=== PATIENT | female | born 1995 | race African-American/Black ===

== ENCOUNTER 2018-02-15 15:20 | Inpatient (IN) | payer BC ==
[2018-02-15] MEDS ORDERED: NS 0.9% 1000 ML* 2,000 ML IV ONE (15:36)
[2018-02-15] MEDS ORDERED: Morphine INJ* 10 MG/ML 1 ML CARPUJECT IV ONE (16:15)
[2018-02-15] MEDS ORDERED: Ondansetron INJ* 2 MG/ML VIAL IV ONE ×2 (16:15→19:55)
[2018-02-15 16:16] LABS: ABS Basophils 0 10^3/ul (0-0.2); ABS Eosinophils 0 10^3/ul (0-0.6); ABS Lymphocytes 1.8 10^3/ul (1.0-4.8); ABS Monocytes 0.4 10^3/ul (0-0.8); ABS Nucleated RBC 0 10^3/ul; Eosinophil % 0.3 % (0-6); Hematocrit 36 % (35-47); Hemoglobin 12.2 g/dl (12.0-16.0); Lymphocyte % 28.1 % (25-47); Mean Corpuscular HGB Conc 34 g/dl (31-36); Mean Corpuscular Hemoglobin 28 pg (27-31); Mean Corpuscular Volume 82 fL (80-97); Mean Platelet Volume 8.6 um3 (7.4-10.4); Nucleated Red Blood Cells % 0.1; Platelet Count 241 10^3/ul (150-450); Red Blood Count 4.37 10^6/ul (4.0-5.4); Red Cell Distribution Width 13 % (10.5-15); White Blood Count 6.2 10^3/ul (3.5-10.8)
[2018-02-15 16:23] LABS: INR 1.08 (0.77-1.02)
[2018-02-15 16:36] LABS: EGFR Non-African American 68.3 (>60)
[2018-02-15] MEDS ORDERED: Morphine VIAL* 4 MG/ML VIAL (1 ml vial) IV ONE (16:39)
[2018-02-15] MEDS ORDERED: Iohexol 300* (CONTRAST) 10 ML SDV IV ONE (16:53)
[2018-02-15 16:55] LABS: Urine Appearance Clear; Urine Blood Negative (Negative); Urine Color Yellow; Urine Ketones 1+ (Negative); Urine Protein Negative (Negative); Urine Specific Gravity 1.015 (1.010-1.030); Urine Urobilinogen Negative (Negative)
[2018-02-15] MEDS ORDERED: LORazepam INJ* 2 MG/ML 1 ML VIAL IV ONE (19:55)
--- NOTE | 2018-02-15 20:08 | RAD ---
CLINICAL HISTORY: Abdominal pain COMPARISON: None TECHNIQUE: Multiple contiguous axial CT scans were obtained of the abdomen and pelvis after the administration of intravenous contrast. Coronal and sagittal multiplanar reformations are submitted for review. Oral contrast was not administered. Delayed images were obtained through the abdomen and pelvis. FINDINGS: LUNG BASES: The lung bases are clear. LIVER: The liver is diffusely low in attenuation compared to the spleen. There are no focal hepatic parenchymal masses. The liver measures 19.6 cm in long axis. BILE DUCTS: There is no intrahepatic or extrahepatic biliary dilatation. GALLBLADDER: The gallbladder is normal, without pericholecystic inflammatory change. PANCREAS: The pancreas is normal, without mass or ductal dilatation. SPLEEN: Normal in size and appearance. UPPER GI TRACT: Evaluation of the gastrointestinal tract is limited by incomplete gastric distention. The upper GI tract is unremarkable. SMALL BOWEL AND MESENTERY: The small bowel is normal in contour, course, and caliber. There is no obstruction or dilatation. COLON: The colon is normal in contour, course, caliber. There is no pericolonic inflammatory change. There is a tubular, vermiform, hollow viscus that is blind ending, and originates from the cecum, consistent with a normal appendix. There is no periappendiceal inflammatory change. This is best seen on coronal images 47 through 56. ADRENALS: Normal bilaterally. KIDNEYS: The kidneys are normal in shape, size, contour, and axis. There is no hydronephrosis or nephrolithiasis. BLADDER: The bladder is collapsed and is not well evaluated PELVIC ORGANS: The uterus and adnexa are grossly normal for technique. AORTA: The aorta is normal. IVC: Unremarkable LYMPH NODES: There is no lymphadenopathy by size criteria. ABDOMINAL WALL: There is no evidence for abdominal wall hernia. BONES AND SOFT TISSUES: Unremarkable OTHER: None IMPRESSION: 1. HEPATOMEGALY WITH FATTY INFILTRATION OF THE LIVER. 2. NO ACUTE CT PATHOLOGY OF THE VISUALIZED ABDOMEN OR PELVIS.
[2018-02-15] MEDS ORDERED: Pantoprazole IV* 40 MG IV ONE (20:39)
[2018-02-15] MEDS ORDERED: NS 0.9% 1000 ML* 1,000 ML IV ONE (20:39)
--- NOTE | 2018-02-15 21:30 | RAD ---
HISTORY: Abdominal pain COMPARISONS: CT dated February 15, 2018 TECHNIQUE: Multiple transverse and longitudinal ultrasound images were obtained of the right upper quadrant of the abdomen using grayscale and color Doppler imaging. FINDINGS: The study is limited by patient body habitus. LIVER: The liver is diffusely echogenic and coarse in echotexture, with decreased acoustic transmission. The liver measures 18.4 cm in long axis.. There is normal hepatopedal flow of the portal vein on Doppler imaging. BILIARY TREE: There is no intrahepatic or extrahepatic biliary dilatation. The common duct measures 0.2 cm. GALLBLADDER: The gallbladder is well-visualized. There is no cholelithiasis, gallbladder wall thickening, pericholecystic fluid, or sonographic Eduardo sign. PANCREAS: The head of the pancreas is unremarkable. The tail of the pancreas is not well visualized secondary to overlying bowel gas. RIGHT KIDNEY: The right kidney is normal in shape, size, contour, and echogenicity. There is no hydronephrosis or nephrolithiasis. The right kidney measures 10.2 x 4.8 x 4.3 cm. AORTA AND IVC: The aorta and IVC are unremarkable. FLUID: There are no pleural effusions. There is no free fluid within the hepatorenal recess. OTHER FINDINGS: None. IMPRESSION: FATTY INFILTRATION OF THE LIVER.
--- NOTE | 2018-02-15 21:31 | RAD ---
HISTORY: Abdominal pain COMPARISONS: CT dated February 15, 2018 TECHNIQUE: Multiple transverse and longitudinal ultrasound images were obtained of the pelvis using grayscale, color Doppler, and spectral Doppler imaging using the transabdominal transducer. FINDINGS: The study is limited by patient body habitus. UTERUS: The uterus measures 6.4 x 2.6 x 3 cm. The uterus is normal in shape, size, contour, and echotexture. ENDOMETRIUM: The endometrial stripe is smooth. The endometrium measures 0.3 cm in thickness. CUL-DE-SAC: There is no free fluid within the cul-de-sac. RIGHT OVARY: The right ovary measures 2.8 x 1.3 x 1.9 cm. Normal arterial and venous waveforms are identifiable within the ovary on spectral Doppler imaging. LEFT OVARY: The left ovary measures 2.6 x 1.4 x 2.5 cm. Normal arterial and venous waveforms are identifiable within the ovary on spectral Doppler imaging. BLADDER: The visualized bladder is unremarkable. OTHER: None IMPRESSION: UNREMARKABLE TRANSABDOMINAL ULTRASOUND OF THE PELVIS. NO SONOGRAPHIC FEATURES OF TORSION. PLEASE NOTE THAT PARTIAL OR INTERMITTENT TORSION MAY BE SONOGRAPHICALLY NORMAL.
--- NOTE | 2018-02-15 21:53 | ED ---
Lobo Irby Julia, scribed for Chito Brown MD on 02/15/18 at 1547 . Abdominal Pain/Female - HPI Summary HPI Summary: This patient is a 22 year old F BIBA to [facility] accompanied by a male friend with a chief complaint of mid abdominal pain since 02/11/18. Patient reports nausea, vomiting, and chills. Patient denies diarrhea, bloody stool, and bowel symptoms. The patient rates the pain 10/10 in severity. Pt reports similar symptoms in October of 2017. - History of Current Complaint Chief Complaint: EDAbdPain Stated Complaint: ABD PAIN Time Seen by Provider: 02/15/18 15:36 Hx Obtained From: Patient Onset/Duration: Lasting Days, Still Present Pain Intensity: 10 Pain Scale Used: 0-10 Numeric Location: Umbilical Associated Signs and Symptoms: Positive: Nausea, Vomiting. Negative: Constipation, Blood in Stool, Diarrhea Simlar Episode/Dx as:: in October 2017 Allergies/Adverse Reactions: Allergies Allergy/AdvReac Type Severity Reaction Status Date / Time No Known Allergies Allergy Verified 02/15/18 16:27 Home Medications: Home Medications Cyanocobalamin TAB* [Vitamin B12 TAB*] 500 mcg PO DAILY 02/15/18 [History Confirmed 02/15/18] L.acidoph,Paracasei, B.lactis [Probiotic] 1 each PO DAILY 02/15/18 [History Confirmed 02/15/18] PMH/Surg Hx/FS Hx/Imm Hx Opthamlomology History: Denies: Hx Legally Blind EENT History: Denies: Hx Deafness Infectious Disease History: No Infectious Disease History: Denies: Traveled Outside the [place] in Last 30 Days - Family History Known Family History: Positive: Hypertension - Social History Alcohol Use: Occasionally Substance Use Type: Reports: Marijuana Substance Use Comment - Amount & Last Used: daily Smoking Status (MU): Never Smoked Tobacco Review of Systems Positive: Chills Gastrointestinal: Negative - bloody stool, bowel symptoms Positive: Abdominal Pain, Vomiting, Nausea. Negative: Diarrhea All Other Systems Reviewed And Are Negative: Yes Physical Exam - Summary Physical Exam Summary: General: well-appearing, moderate pain distress Skin: warm, color reflects adequate perfusion, dry Head: normal Eyes: EOMI, CLARISSA ENT: normal Neck: supple, nontender Respiratory: CTA, breath sounds present Cardiovascular: RRR Abdomen: soft, tenderness at mid abdomen Bowel: present Musculoskeletal: normal, strength/ROM intact Neurological: normal, sensory/motor intact, A&O x3 Psychological: affect/mood appropriate Triage Information Reviewed: Yes Vital Signs On Initial Exam: Initial Vitals Temp Pulse Resp BP Pulse Ox 97.9 F 65 18 146/106 97 02/15/18 15:22 02/15/18 15:22 02/15/18 15:22 02/15/18 15:22 02/15/18 15:22 Vital Signs Reviewed: Yes Diagnostics - Vital Signs Vital Signs Temp Pulse Resp BP Pulse Ox 02/15/18 15:22 97.9 F 65 18 146/106 97 - Laboratory Lab Results: Lab Results 02/15/18 02/15/18 02/15/18 Range/Units 16:06 16:06 16:06 WBC 6.2 (3.5-10.8) 10^3/ul RBC 4.37 (4.0-5.4) 10^6/ul Hgb 12.2 (12.0-16.0) g/dl Hct 36 (35-47) % MCV 82 (80-97) fL MCH 28 (27-31) pg MCHC 34 (31-36) g/dl RDW 13 (10.5-15) % Plt Count 241 (150-450) 10^3/ul MPV 8.6 (7.4-10.4) um3 Neut % (Auto) 64.0 (38-83) % Lymph % (Auto) 28.1 (25-47) % [place] % (Auto) 6.8 (0-7) % Eos % (Auto) 0.3 (0-6) % Baso % (Auto) 0.8 (0-2) % Absolute Neuts (auto) 4.0 (1.5-7.7) 10^3/ul Absolute Lymphs (auto) 1.8 (1.0-4.8) 10^3/ul Absolute Monos (auto) 0.4 (0-0.8) 10^3/ul Absolute Eos (auto) 0 (0-0.6) 10^3/ul Absolute Basos (auto) 0 (0-0.2) 10^3/ul Absolute Nucleated RBC 0 10^3/ul Nucleated RBC % 0.1 INR (Anticoag Therapy) 1.08 H (0.77-1.02) APTT 30.4 (26.0-36.3) seconds Sodium 139 (139-145) mmol/L Potassium 3.6 (3.5-5.0) mmol/L Chloride 106 (101-111) mmol/L Carbon Dioxide 21 L (22-32) mmol/L Anion Gap 12 H (2-11) mmol/L BUN 9 (6-24) mg/dL Creatinine 1.03 H (0.51-0.95) mg/dL Est GFR ( Amer) 87.9 (>60) Est GFR (Non-Af Amer) 68.3 (>60) BUN/Creatinine Ratio 8.7 (8-20) Glucose 97 (70-100) mg/dL Lactic Acid (0.5-2.0) mmol/L Calcium 9.4 (8.6-10.3) mg/dL Total Bilirubin 0.70 (0.2-1.0) mg/dL AST 19 (13-39) U/L ALT 18 (7-52) U/L Alkaline Phosphatase 51 (34-104) U/L C-Reactive Protein 3.74 (< 5.00) mg/L Total Protein 7.5 (6.4-8.9) g/dL Albumin 4.0 (3.2-5.2) g/dL Globulin 3.5 (2-4) g/dL Albumin/Globulin Ratio 1.1 (1-3) Lipase 27 (11.0-82.0) U/L Beta HCG, Quant < 0.60 mIU/mL Urine Color Urine Appearance Urine pH (5-9) Ur Specific [place] (1.010-1.030) Urine Protein (Negative) Urine Ketones (Negative) Urine Blood (Negative) Urine Nitrate (Negative) Urine Bilirubin (Negative) Urine Urobilinogen (Negative) Ur Leukocyte Esterase (Negative) Urine Glucose (Negative) 02/15/18 02/15/18 Range/Units 16:06 16:43 WBC (3.5-10.8) 10^3/ul RBC (4.0-5.4) 10^6/ul Hgb (12.0-16.0) g/dl Hct (35-47) % MCV (80-97) fL MCH (27-31) pg MCHC (31-36) g/dl RDW (10.5-15) % Plt Count (150-450) 10^3/ul MPV (7.4-10.4) um3 Neut % (Auto) (38-83) % Lymph % (Auto) (25-47) % [place] % (Auto) (0-7) % Eos % (Auto) (0-6) % Baso % (Auto) (0-2) % Absolute Neuts (auto) (1.5-7.7) 10^3/ul Absolute Lymphs (auto) (1.0-4.8) 10^3/ul Absolute Monos (auto) (0-0.8) 10^3/ul Absolute Eos (auto) (0-0.6) 10^3/ul Absolute Basos (auto) (0-0.2) 10^3/ul Absolute Nucleated RBC 10^3/ul Nucleated RBC % INR (Anticoag Therapy) (0.77-1.02) APTT (26.0-36.3) seconds Sodium (139-145) mmol/L Potassium (3.5-5.0) mmol/L Chloride (101-111) mmol/L Carbon Dioxide (22-32) mmol/L Anion Gap (2-11) mmol/L BUN (6-24) mg/dL Creatinine (0.51-0.95) mg/dL Est GFR ( Amer) (>60) Est GFR (Non-Af Amer) (>60) BUN/Creatinine Ratio (8-20) Glucose (70-100) mg/dL Lactic Acid 1.1 (0.5-2.0) mmol/L Calcium (8.6-10.3) mg/dL Total Bilirubin (0.2-1.0) mg/dL AST (13-39) U/L ALT (7-52) U/L Alkaline Phosphatase (34-104) U/L C-Reactive Protein (< 5.00) mg/L Total Protein (6.4-8.9) g/dL Albumin (3.2-5.2) g/dL Globulin (2-4) g/dL Albumin/Globulin Ratio (1-3) Lipase (11.0-82.0) U/L Beta HCG, Quant mIU/mL Urine Color Yellow Urine Appearance Clear Urine pH 6.0 (5-9) Ur Specific [place] 1.015 (1.010-1.030) Urine Protein Negative (Negative) Urine Ketones 1+ A (Negative) Urine Blood Negative (Negative) Urine Nitrate Negative (Negative) Urine Bilirubin Negative (Negative) Urine Urobilinogen Negative (Negative) Ur Leukocyte Esterase Negative (Negative) Urine Glucose Negative (Negative) Result Diagrams: 02/15/18 16:06 02/15/18 16:06 Lab Statement: Any lab studies that have been ordered have been reviewed, and results considered in the medical decision making process. - CT A/P CT Interpretation Completed By: Radiologist - 1. HEPATOMEGALY WITH FATTY INFILTRATION OF THE LIVER. 2. NO ACUTE CT PATHOLOGY OF THE VISUALIZED ABDOMEN OR PELVIS. ED Physician has reviewed this report. - Additional Comments Diagnostic Additional Comments: A Gallbladder US reveals, as per radiologist: FATTY INFILTRATION OF THE LIVER. ED Physician has reviewed this report. Abdominal Pain Fem Course/Dx - Course Course Of Treatment: DISCUSSED RESULTS WITH THE PATIENT. PAIN AND NAUSEA CONTINUE. ADMIT HOSPITALIST. - Diagnoses Provider Diagnoses: Intractable abdominal pain, Intractable vomiting - Provider Notifications Discussed Care Of Patient With: India Cutler - hospitalist Time Discussed With Above Provider: 21:48 Instructed by Provider To: Admit As Inpatient Discharge - Sign-Out/Discharge Documenting (check all that apply): Discharge/Admit/Transfer - Discharge Plan Condition: Stable Disposition: ADMITTED TO [facility] Referrals: No Primary Care Phys,NOPCP [Primary Care Provider] - - Billing Disposition and Condition Condition: STABLE Disposition: HOSP-[facility] The documentation as recorded by the Lobo [email or web address] Julia accurately reflects the service I personally performed and the decisions made by me, Chito Brown MD.
[2018-02-15] MEDS ORDERED: Acetaminophen TAB* 325 MG PO PRN (22:24)
[2018-02-15] MEDS ORDERED: Morphine VIAL* 4 MG/ML VIAL (1 ml vial) IV PRN (22:24)
--- NOTE | 2018-02-16 00:28 | HP ---
CC: Dr. Janet León * HISTORY AND PHYSICAL: DATE OF ADMISSION: 02/15/18 PRIMARY CARE PROVIDER: Janet León MD., [facility]. CHIEF COMPLAINT: Abdominal pain, nausea, vomiting. HISTORY OF PRESENT ILLNESS: Ms. Reno is a 22-year-old female who states that this past 02/11/18, she began to have severe, sharp, stabbing- like abdominal pain in the midline with associated nausea and vomiting. The patient presented to [facility] where she was given ibuprofen and sent home. The patient continued to have severe pain and therefore went back to the emergency room. At that time, she was given fluids, nausea medication, and again ibuprofen. She states that following each ER visit she may have felt slightly better for a couple of hours, but the pain came back. She in fact went to [facility] 4 times since Tuesday with the same complaint of pain. Today, the patient came to [facility] [place]. The patient describes the pain as being midline, from her epigastrium to the lower abdomen. She describes it as sharp and stabbing. Sometimes it feels like it is cramping. She denies any fevers. She states that she has had some chills. She has had no appetite. She states she has not been having any diarrhea or constipation. She did have a small bowel movement the day prior to admission. There was no blood in the stool. She does admit to being sexually active, but denies any vaginal discharge. PAST MEDICAL HISTORY: 1. Obesity. 2. Asthma. PAST SURGICAL HISTORY: None. MEDICATIONS: 1. Albuterol two puffs inhaled q.4 hours p.r.n. shortness of breath. 2. Probiotic one cap p.o. daily. 3. Vitamin B12, 500 mcg p.o. daily. ALLERGIES: None. FAMILY HISTORY: Mom is living, she is 50, has diabetes. Dad is living, he is 47, is healthy. SOCIAL HISTORY: The patient does not smoke cigarette. She drinks alcohol on occasion. She states that she smokes marijuana daily. 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 She is not . She has no children. She indicates that her mom is her healthcare proxy. REVIEW OF SYSTEMS: A complete 11 systems review of systems was obtained. Pertinent positives and negatives are as per HPI and are otherwise negative. PHYSICAL EXAMINATION GENERAL: Patient is a well-developed, morbidly obese, young female, lying in the bed, in no acute distress. VITAL SIGNS: Blood pressure 175/105, pulse 67, respirations 17, temp 98.2, O2 sat 99% on room air. HEENT: Pupils are equal and round. Extraocular muscles are intact. Oropharynx is clear. Oral mucosa is moist. There is no submandibular, cervical or supraclavicular adenopathy. Thyroid is not enlarged. No thyroid nodules noted. PULMONARY: Lungs are clear to auscultation bilaterally. CARDIAC: Normal S1 and S2. Regular rate and rhythm. I do not appreciate any murmurs. ABDOMEN: Bowel sounds are present. Abdomen is soft, nondistended. She is mildly tender to palpation, but palpation does not elicit the same pain that she feels from within. PELVIC EXAM: Reveals no evidence of vaginal discharge. There is no cervical motion tenderness. MUSCULOSKELETAL: There is no cyanosis or clubbing of the digits. There is full active range of motion of all 4 extremities. NEUROLOGIC: Cranial nerves II through XII are grossly intact. Sensation is intact to light touch throughout. Strength is 5/5 and symmetric in both the upper and lower extremities bilaterally. SKIN: Warm and dry. There are no rashes. PSYCHIATRIC: The patient is alert. She is oriented x3. Affect appears appropriate. DIAGNOSTIC STUDIES/LAB DATA: WBC 6.2, hemoglobin 12.2, hematocrit 36, platelets 241. INR 1.08. Sodium 139, potassium 3.6, chloride 106, CO2 of 21, BUN 9, creatinine 1.03, glucose 97, lactic acid 1.1, calcium 9.4. Bilirubin 0.7 , AST 19, ALT 18, alk phos 51. CRP 3.74. Albumin 4.0. Lipase 27. Urinalysis reveals a specific gravity of 1.015, 1+ ketones, and otherwise negative. CT abdomen and pelvis revealed hepatomegaly with fatty infiltration of the liver. No acute CT pathology of the visualized abdomen or pelvis. Gallbladder ultrasound: Fatty infiltration of the liver. Gallbladder is well visualized. There is no cholelithiasis, gallbladder wall thickening or pericholecystic fluid. Pelvic ultrasound unremarkable. Transabdominal ultrasound of the pelvis: No sonographic features of torsion. ASSESSMENT AND PLAN: Ms. Reno is a 22-year-old female who presents to the emergency room for the fifth time since 02/11/18 with complaints of abdominal pain, nausea, and vomiting of unclear etiology. 1. Intractable abdominal pain, nausea, and vomiting. The etiology of this is not clear at this point. She has had significant amount of imaging without any identification as a cause to her pain. I am suspicious perhaps she may have cyclic vomiting related to marijuana use. She does smoke daily. At this point , we will admit the patient, aggressively hydrate her with lactated Ringer's and administer antiemetics and pain control. The patient is in agreement with this plan. If she continues to have severe abdominal pain that is unrelenting despite therapy, perhaps an evaluation for porphyria could be considered, but this seems unlikely. 2. Asthma. There are no signs of exacerbation at this point. 3. DVT prophylaxis. According to the Adult Thrombosis Prophylaxis Risk Factor Assessment Guide, the patient has a total risk factor score of 1, making her low risk. Ambulation will be utilized as DVT prophylaxis. 4. Code status is full. TIME SPENT: Fifty-five minutes were spent admitting this patient. [id number]/[facility] #: [id number] CARLA
[2018-02-16] MEDS: Metoclopramide IV* 5 MG/ML 2 ML VIAL IV PRN ×4 (00:44→23:46)
[2018-02-16] MEDS: Morphine VIAL* 4 MG/ML VIAL (1 ml vial) IV PRN ×7 (01:09→23:46)
[2018-02-16] MEDS: PROCHLORPERAZINE INJ 5 MG/ML 2 ML VIAL IV PRN ×3 (04:12→20:52)
--- NOTE | 2018-02-16 07:41 | PN ---
Subjective Date of Service: 02/16/18 Interval History: patient seen and evaluated at the bedside. She was found to be sleeping awaking easily to voice. She reports she feels much better (currently) and has not vomited in several hours. She states this has been her pattern though where she feels that is totally resolved then all of a sudden has to vomit and has abdominal pain in which she states are sharp and spasm like. She currently denies any nausea or abdominal pain. She has been able to hold a Popsicle down and currently wants another one. No fever or chills. Denies dysuria. No SINCLAIR, rhinorrhea, body aches. Objective Active Medications: Acetaminophen (Tylenol Tab*) 650 mg PO Q4H PRN PRN Reason: PAIN Lactated Ringer's (Lactated Ringers 1000 Ml Bag*) 1,000 mls @ 100 mls/hr IV ONCE ONE Stop: 02/16/18 08:23 Last Admin: 02/15/18 22:37 Dose: 100 mls/hr Metoclopramide HCl (Reglan Iv*) 10 mg IV Q6H PRN PRN Reason: NAUSEA/VOMITING Last Admin: 02/16/18 00:44 Dose: 10 mg Morphine Sulfate (Morphine Vial*) 2 mg IV Q2H PRN PRN Reason: PAIN - MILD Last Admin: 02/16/18 03:56 Dose: 2 mg Prochlorperazine Edisylate (Compazine Inj*) 10 mg IV Q6H PRN PRN Reason: NAUSEA/VOMITING Last Admin: 02/16/18 04:12 Dose: 10 mg Vital Signs - 8 hr 02/15/18 02/16/18 02/16/18 23:53 00:09 01:09 Temperature 99.4 F Pulse Rate 50 Respiratory 20 18 20 Rate Blood Pressure 155/71 (mmHg) O2 Sat by Pulse 100 Oximetry 02/16/18 02/16/18 02/16/18 03:10 03:36 03:56 Temperature 98.5 F Pulse Rate 66 Respiratory 16 25 22 Rate Blood Pressure 116/91 (mmHg) O2 Sat by Pulse 99 Oximetry 02/16/18 05:30 Temperature Pulse Rate Respiratory 18 Rate Blood Pressure (mmHg) O2 Sat by Pulse Oximetry Oxygen Devices in Use Now: None Appearance: morbid obese 22 yo female A+Ox3 in NAD Eyes: No Scleral Icterus, PERRLA Ears/Nose/Mouth/Throat: NL Teeth, Lips, Gums, Mucous Membranes Moist Neck: NL Appearance and Movements; NL JVP Respiratory: Symmetrical Chest Expansion and Respiratory Effort, Clear to Auscultation Cardiovascular: NL Sounds; No Murmurs; No JVD, RRR, No Edema Abdominal: NL Sounds; No Tenderness; No Distention Extremities: No Edema, No Clubbing, Cyanosis Skin: No Rash or Ulcers, No Nodules or Sclerosis Neurological: Alert and Oriented x 3, NL Sensation, NL Muscle Strength and Tone Lines/Tubes/Other Access: Clean, Dry and Intact Peripheral IV Nutrition: Taking PO's Result Diagrams: 02/16/18 10:08 02/16/18 10:08 Additional Lab and Data: Lab Results 02/15/18 02/15/18 02/15/18 Range/Units 16:06 16:06 16:06 WBC 6.2 (3.5-10.8) 10^3/ul RBC 4.37 (4.0-5.4) 10^6/ul Hgb 12.2 (12.0-16.0) g/dl Hct 36 (35-47) % MCV 82 (80-97) fL MCH 28 (27-31) pg MCHC 34 (31-36) g/dl RDW 13 (10.5-15) % Plt Count 241 (150-450) 10^3/ul MPV 8.6 (7.4-10.4) um3 Neut % (Auto) 64.0 (38-83) % Lymph % (Auto) 28.1 (25-47) % [place] % (Auto) 6.8 (0-7) % Eos % (Auto) 0.3 (0-6) % Baso % (Auto) 0.8 (0-2) % Absolute Neuts (auto) 4.0 (1.5-7.7) 10^3/ul Absolute Lymphs (auto) 1.8 (1.0-4.8) 10^3/ul Absolute Monos (auto) 0.4 (0-0.8) 10^3/ul Absolute Eos (auto) 0 (0-0.6) 10^3/ul Absolute Basos (auto) 0 (0-0.2) 10^3/ul Absolute Nucleated RBC 0 10^3/ul Nucleated RBC % 0.1 INR (Anticoag Therapy) 1.08 H (0.77-1.02) APTT 30.4 (26.0-36.3) seconds Sodium 139 (139-145) mmol/L Potassium 3.6 (3.5-5.0) mmol/L Chloride 106 (101-111) mmol/L Carbon Dioxide 21 L (22-32) mmol/L Anion Gap 12 H (2-11) mmol/L BUN 9 (6-24) mg/dL Creatinine 1.03 H (0.51-0.95) mg/dL Est GFR ( Amer) 87.9 (>60) Est GFR (Non-Af Amer) 68.3 (>60) BUN/Creatinine Ratio 8.7 (8-20) Glucose 97 (70-100) mg/dL Lactic Acid (0.5-2.0) mmol/L Calcium 9.4 (8.6-10.3) mg/dL Total Bilirubin 0.70 (0.2-1.0) mg/dL AST 19 (13-39) U/L ALT 18 (7-52) U/L Alkaline Phosphatase 51 (34-104) U/L C-Reactive Protein 3.74 (< 5.00) mg/L Total Protein 7.5 (6.4-8.9) g/dL Albumin 4.0 (3.2-5.2) g/dL Globulin 3.5 (2-4) g/dL Albumin/Globulin Ratio 1.1 (1-3) Lipase 27 (11.0-82.0) U/L Beta HCG, Quant < 0.60 mIU/mL Urine Color Urine Appearance Urine pH (5-9) Ur Specific [place] (1.010-1.030) Urine Protein (Negative) Urine Ketones (Negative) Urine Blood (Negative) Urine Nitrate (Negative) Urine Bilirubin (Negative) Urine Urobilinogen (Negative) Ur Leukocyte Esterase (Negative) Urine Glucose (Negative) 02/15/18 02/15/18 Range/Units 16:06 16:43 WBC (3.5-10.8) 10^3/ul RBC (4.0-5.4) 10^6/ul Hgb (12.0-16.0) g/dl Hct (35-47) % MCV (80-97) fL MCH (27-31) pg MCHC (31-36) g/dl RDW (10.5-15) % Plt Count (150-450) 10^3/ul MPV (7.4-10.4) um3 Neut % (Auto) (38-83) % Lymph % (Auto) (25-47) % [place] % (Auto) (0-7) % Eos % (Auto) (0-6) % Baso % (Auto) (0-2) % Absolute Neuts (auto) (1.5-7.7) 10^3/ul Absolute Lymphs (auto) (1.0-4.8) 10^3/ul Absolute Monos (auto) (0-0.8) 10^3/ul Absolute Eos (auto) (0-0.6) 10^3/ul Absolute Basos (auto) (0-0.2) 10^3/ul Absolute Nucleated RBC 10^3/ul Nucleated RBC % INR (Anticoag Therapy) (0.77-1.02) APTT (26.0-36.3) seconds Sodium (139-145) mmol/L Potassium (3.5-5.0) mmol/L Chloride (101-111) mmol/L Carbon Dioxide (22-32) mmol/L Anion Gap (2-11) mmol/L BUN (6-24) mg/dL Creatinine (0.51-0.95) mg/dL Est GFR ( Amer) (>60) Est GFR (Non-Af Amer) (>60) BUN/Creatinine Ratio (8-20) Glucose (70-100) mg/dL Lactic Acid 1.1 (0.5-2.0) mmol/L Calcium (8.6-10.3) mg/dL Total Bilirubin (0.2-1.0) mg/dL AST (13-39) U/L ALT (7-52) U/L Alkaline Phosphatase (34-104) U/L C-Reactive Protein (< 5.00) mg/L Total Protein (6.4-8.9) g/dL Albumin (3.2-5.2) g/dL Globulin (2-4) g/dL Albumin/Globulin Ratio (1-3) Lipase (11.0-82.0) U/L Beta HCG, Quant mIU/mL Urine Color Yellow Urine Appearance Clear Urine pH 6.0 (5-9) Ur Specific [place] 1.015 (1.010-1.030) Urine Protein Negative (Negative) Urine Ketones 1+ A (Negative) Urine Blood Negative (Negative) Urine Nitrate Negative (Negative) Urine Bilirubin Negative (Negative) Urine Urobilinogen Negative (Negative) Ur Leukocyte Esterase Negative (Negative) Urine Glucose Negative (Negative) Assess/Plan/Problems-Billing Assessment: 22 to female [facility] of obesity, asthma who presented to the ER on 02/15 with c/o of abdominal pain, nausea and vomiting since 02/11, seen at [place] ER 4 times, with unclear etiology - Patient Problems (1) Abdominal pain Comment: - with nausea and vomiting since 02/11 - at this point she seems to be improving , just starting to keep down some fluid. - unclear etiology - has had significant imaging with no found source. CT abd/ Pelvis w/ contrast - no acute pathology. GB ultrasound showing fatty liver. unremarkable transabdominal u/s. No diarrhea or constipation. urinalysis normal. - Possible cyclic vomiting syndrome secondary to chronic cannabis use? Does not seem like viral gastroenteritis. - Continue IVFs, antiemetics - replace mag+ (2) Asthma Comment: - controlled. (3) Morbid obesity with BMI of 45.0-49.9, adult (4) DVT prophylaxis Comment: low risk. encourage ambulation Status and Disposition: OBV. Most likely DC home tomorrow.
[2018-02-16 10:18] LABS: ABS Basophils 0 10^3/ul (0-0.2); ABS Eosinophils 0 10^3/ul (0-0.6); ABS Lymphocytes 1.6 10^3/ul (1.0-4.8); ABS Monocytes 0.6 10^3/ul (0-0.8); ABS Neutrophils 3.5 10^3/ul (1.5-7.7); ABS Nucleated RBC 0 10^3/ul; Eosinophil % 0.6 % (0-6); Hematocrit 32 % (35-47); Hemoglobin 10.8 g/dl (12.0-16.0); Lymphocyte % 27.8 % (25-47); Mean Corpuscular HGB Conc 34 g/dl (31-36); Mean Corpuscular Hemoglobin 28 pg (27-31); Mean Corpuscular Volume 83 fL (80-97); Mean Platelet Volume 8.2 um3 (7.4-10.4); Nucleated Red Blood Cells % 0.1; Platelet Count 209 10^3/ul (150-450); Red Blood Count 3.88 10^6/ul (4.0-5.4); Red Cell Distribution Width 14 % (10.5-15); White Blood Count 5.7 10^3/ul (3.5-10.8)
[2018-02-16] MEDS ORDERED: Magnesium Sulfate 2 GM IV* 2 GM/50 ML BAG IVPB ONE (18:10)
[2018-02-16] MEDS ORDERED: Senna TAB PO PRN (23:56)
[2018-02-17] MEDS: Morphine VIAL* 4 MG/ML VIAL (1 ml vial) IV PRN ×5 (05:13→20:12)
[2018-02-17 05:41] LABS: ABS Basophils 0 10^3/ul (0-0.2); ABS Eosinophils 0 10^3/ul (0-0.6); ABS Lymphocytes 1.6 10^3/ul (1.0-4.8); ABS Monocytes 0.5 10^3/ul (0-0.8); ABS Neutrophils 4.2 10^3/ul (1.5-7.7); ABS Nucleated RBC 0 10^3/ul; Eosinophil % 0.3 % (0-6); Hematocrit 35 % (35-47); Hemoglobin 11.7 g/dl (12.0-16.0); Lymphocyte % 25.4 % (25-47); Mean Corpuscular HGB Conc 33 g/dl (31-36); Mean Corpuscular Hemoglobin 27 pg (27-31); Mean Corpuscular Volume 83 fL (80-97); Mean Platelet Volume 8.9 um3 (7.4-10.4); Nucleated Red Blood Cells % 0; Platelet Count 227 10^3/ul (150-450); Red Blood Count 4.25 10^6/ul (4.0-5.4); Red Cell Distribution Width 14 % (10.5-15); White Blood Count 6.4 10^3/ul (3.5-10.8)
[2018-02-17 05:53] LABS: EGFR Non-African American 79.8 (>60)
[2018-02-17] MEDS: Metoclopramide IV* 5 MG/ML 2 ML VIAL IV PRN ×2 (07:08→13:39)
[2018-02-17] MEDS ORDERED: Docusate CAP* 100 MG PO SCH (09:00)
[2018-02-17] MEDS: PROCHLORPERAZINE INJ 5 MG/ML 2 ML VIAL IV PRN ×2 (10:07→20:13)
[2018-02-17] MEDS ORDERED: Bisacodyl SUPP* 10 MG SUPP PR ONE (10:59)
[2018-02-17] MEDS ORDERED: Midazolam* 1 MG/ML 10 ML VIAL (10 MG) ONE (14:35)
[2018-02-17] MEDS ORDERED: fentaNYL* 50 MCG/ML 2 ML VIAL (100 MCG VIAL) ONE (14:35)
--- NOTE | 2018-02-17 17:06 | PN ---
Subjective Date of Service: 02/17/18 Interval History: Feeling better, thinks she can hydrate herself adequately. Pain beter. Objective Active Medications: Acetaminophen (Tylenol Tab*) 650 mg PO Q4H PRN PRN Reason: PAIN Metoclopramide HCl (Reglan Iv*) 10 mg IV Q6H PRN PRN Reason: NAUSEA/VOMITING Last Admin: 02/17/18 13:39 Dose: 10 mg Morphine Sulfate (Morphine Vial*) 2 mg IV Q2H PRN PRN Reason: PAIN - MILD Last Admin: 02/17/18 13:39 Dose: 2 mg Omeprazole (Prilosec Cap*) 40 mg PO DAILY@0730 [facility] Prochlorperazine Edisylate (Compazine Inj*) 10 mg IV Q6H PRN PRN Reason: NAUSEA/VOMITING Last Admin: 02/17/18 10:07 Dose: 10 mg Senna (Senokot Tab*) 2 tab PO BEDTIME PRN PRN Reason: CONSTIPATION Last Admin: 02/17/18 00:10 Dose: 2 tab Sucralfate (Sucralfate Susp) 1 gm PO [facility] Vital Signs - 8 hr 02/17/18 02/17/18 02/17/18 10:07 11:43 13:39 Temperature 98.9 F Pulse Rate 51 Respiratory 20 22 20 Rate Blood Pressure 144/80 (mmHg) O2 Sat by Pulse 95 Oximetry Oxygen Devices in Use Now: None Appearance: Alert, supine in bed. In fair spirits. Looks comfortable. Eyes: No Scleral Icterus Extremities: No Edema, No Clubbing, Cyanosis, - Skin: No Rash or Ulcers, No Nodules or Sclerosis, - Neurological: Alert and Oriented x 3, NL Sensation Result Diagrams: 02/17/18 05:03 02/17/18 05:03 Additional Lab and Data: Lab Results 02/15/18 02/15/18 02/15/18 Range/Units 16:06 16:06 16:06 WBC 6.2 (3.5-10.8) 10^3/ul RBC 4.37 (4.0-5.4) 10^6/ul Hgb 12.2 (12.0-16.0) g/dl Hct 36 (35-47) % MCV 82 (80-97) fL MCH 28 (27-31) pg MCHC 34 (31-36) g/dl RDW 13 (10.5-15) % Plt Count 241 (150-450) 10^3/ul MPV 8.6 (7.4-10.4) um3 Neut % (Auto) 64.0 (38-83) % Lymph % (Auto) 28.1 (25-47) % [place] % (Auto) 6.8 (0-7) % Eos % (Auto) 0.3 (0-6) % Baso % (Auto) 0.8 (0-2) % Absolute Neuts (auto) 4.0 (1.5-7.7) 10^3/ul Absolute Lymphs (auto) 1.8 (1.0-4.8) 10^3/ul Absolute Monos (auto) 0.4 (0-0.8) 10^3/ul Absolute Eos (auto) 0 (0-0.6) 10^3/ul Absolute Basos (auto) 0 (0-0.2) 10^3/ul Absolute Nucleated RBC 0 10^3/ul Nucleated RBC % 0.1 INR (Anticoag Therapy) 1.08 H (0.77-1.02) APTT 30.4 (26.0-36.3) seconds Sodium 139 (139-145) mmol/L Potassium 3.6 (3.5-5.0) mmol/L Chloride 106 (101-111) mmol/L Carbon Dioxide 21 L (22-32) mmol/L Anion Gap 12 H (2-11) mmol/L BUN 9 (6-24) mg/dL Creatinine 1.03 H (0.51-0.95) mg/dL Est GFR ( Amer) 87.9 (>60) Est GFR (Non-Af Amer) 68.3 (>60) BUN/Creatinine Ratio 8.7 (8-20) Glucose 97 (70-100) mg/dL Lactic Acid (0.5-2.0) mmol/L Calcium 9.4 (8.6-10.3) mg/dL Total Bilirubin 0.70 (0.2-1.0) mg/dL AST 19 (13-39) U/L ALT 18 (7-52) U/L Alkaline Phosphatase 51 (34-104) U/L C-Reactive Protein 3.74 (< 5.00) mg/L Total Protein 7.5 (6.4-8.9) g/dL Albumin 4.0 (3.2-5.2) g/dL Globulin 3.5 (2-4) g/dL Albumin/Globulin Ratio 1.1 (1-3) Lipase 27 (11.0-82.0) U/L Beta HCG, Quant < 0.60 mIU/mL Urine Color Urine Appearance Urine pH (5-9) Ur Specific [place] (1.010-1.030) Urine Protein (Negative) Urine Ketones (Negative) Urine Blood (Negative) Urine Nitrate (Negative) Urine Bilirubin (Negative) Urine Urobilinogen (Negative) Ur Leukocyte Esterase (Negative) Urine Glucose (Negative) 02/15/18 02/15/18 Range/Units 16:06 16:43 WBC (3.5-10.8) 10^3/ul RBC (4.0-5.4) 10^6/ul Hgb (12.0-16.0) g/dl Hct (35-47) % MCV (80-97) fL MCH (27-31) pg MCHC (31-36) g/dl RDW (10.5-15) % Plt Count (150-450) 10^3/ul MPV (7.4-10.4) um3 Neut % (Auto) (38-83) % Lymph % (Auto) (25-47) % [place] % (Auto) (0-7) % Eos % (Auto) (0-6) % Baso % (Auto) (0-2) % Absolute Neuts (auto) (1.5-7.7) 10^3/ul Absolute Lymphs (auto) (1.0-4.8) 10^3/ul Absolute Monos (auto) (0-0.8) 10^3/ul Absolute Eos (auto) (0-0.6) 10^3/ul Absolute Basos (auto) (0-0.2) 10^3/ul Absolute Nucleated RBC 10^3/ul Nucleated RBC % INR (Anticoag Therapy) (0.77-1.02) APTT (26.0-36.3) seconds Sodium (139-145) mmol/L Potassium (3.5-5.0) mmol/L Chloride (101-111) mmol/L Carbon Dioxide (22-32) mmol/L Anion Gap (2-11) mmol/L BUN (6-24) mg/dL Creatinine (0.51-0.95) mg/dL Est GFR ( Amer) (>60) Est GFR (Non-Af Amer) (>60) BUN/Creatinine Ratio (8-20) Glucose (70-100) mg/dL Lactic Acid 1.1 (0.5-2.0) mmol/L Calcium (8.6-10.3) mg/dL Total Bilirubin (0.2-1.0) mg/dL AST (13-39) U/L ALT (7-52) U/L Alkaline Phosphatase (34-104) U/L C-Reactive Protein (< 5.00) mg/L Total Protein (6.4-8.9) g/dL Albumin (3.2-5.2) g/dL Globulin (2-4) g/dL Albumin/Globulin Ratio (1-3) Lipase (11.0-82.0) U/L Beta HCG, Quant mIU/mL Urine Color Yellow Urine Appearance Clear Urine pH 6.0 (5-9) Ur Specific [place] 1.015 (1.010-1.030) Urine Protein Negative (Negative) Urine Ketones 1+ A (Negative) Urine Blood Negative (Negative) Urine Nitrate Negative (Negative) Urine Bilirubin Negative (Negative) Urine Urobilinogen Negative (Negative) Ur Leukocyte Esterase Negative (Negative) Urine Glucose Negative (Negative) Microbiology and Other Data: Microbiology 02/17/18 08:00 Stool Occult Blood ([facility]ARIS) - Final Stool Assess/Plan/Problems-Billing Assessment: 22 to female [facility] of obesity, asthma who presented to the ER on 02/15 with c/o of abdominal pain, nausea and vomiting since 02/11, seen at [place] ER 4 times, with unclear etiology - Patient Problems (1) Hiatal hernia Current Visit: Yes Status: Acute Code(s): K44.9 - DIAPHRAGMATIC HERNIA WITHOUT OBSTRUCTION OR GANGRENE SNOMED Code(s): 00420129 Comment: Irritation secondary to emesis. Emesis likely secondary to marijuana use. Continue sucralfate and PPI. Discussed with Dr. Marte. (2) Morbid obesity with BMI of 45.0-49.9, adult Current Visit: Yes Status: Acute Code(s): E66.01 - MORBID (SEVERE) OBESITY DUE TO EXCESS CALORIES; Z68.42 - BODY MASS INDEX (BMI) 45.0-49.9, ADULT SNOMED Code(s): 589853276 Comment: Pt advised to discuss bariatric surgery with her PCP. - Status and Disposition: OBV. Most likely DC home tomorrow.
[2018-02-17] MEDS: Sucralfate SUSP 1 GM/10 ml 10 ML UDC PO SCH ×2 (18:00→20:17)
[2018-02-18] MEDS: Morphine VIAL* 4 MG/ML VIAL (1 ml vial) IV PRN ×3 (00:22→07:38)
[2018-02-18] MEDS: Metoclopramide IV* 5 MG/ML 2 ML VIAL IV PRN ×2 (00:25→08:31)
[2018-02-18] MEDS: PROCHLORPERAZINE INJ 5 MG/ML 2 ML VIAL IV PRN (02:45)
[2018-02-18] MEDS ORDERED: Omeprazole CAP* 20 MG PO SCH (07:30)
[2018-02-18] MEDS: Sucralfate SUSP 1 GM/10 ml 10 ML UDC PO SCH (07:42)
[2018-02-18] MEDS ORDERED: Ondansetron ODT TAB* 4 MG SL PRN (09:30)
[2018-02-18] MEDS ORDERED: oxyCODONE/Acetamin 5/325 MG* TAB PO PRN (09:30)
--- NOTE | 2018-02-18 10:17 | PN ---
"Progress Note - Progress Note Date of Service: 02/18/18 Note: Search Terms: amira ellis, 1995 Search Date: 02/18/2018 10:16:59 AM The Drug Utilization Report below displays all of the controlled substance prescriptions, if any, that your patient has filled in the last twelve months. The information displayed on this report is compiled from pharmacy submissions to the Department, and accurately reflects the information as submitted by the pharmacies. This report was requested by: George Dowell | Reference #: [id number] There are no results for the search terms that you entered."
[2018-02-18 12:22] VITALS: BP 153/77
--- NOTE | 2018-02-18 14:18 | DS ---
DISCHARGE SUMMARY: DATE OF ADMISSION: DATE OF DISCHARGE: 02/18/18 HISTORY: This 22-year-old woman presented with abdominal pain, nausea, and vomiting, began about 02/11/18. She was seen in the [place] [facility], given ibuprofen and sent home. She continues to have severe pain and in fact went to the [place] a total of 4 times. She then came to [facility] ED for evaluation. The rest of history is detailed in the admission note. It was felt that the nausea and vomiting were related to her marijuana use. She was still having significant problems on 02/17/[address] Marte did an endoscopy, found she had a large hiatal hernia with irritation and gastritis. He prescribed omeprazole and sucralfate. She did improve and was able to take liquids adequately, possibly occasionally had small amount of emesis. The ibuprofen should certainly have contributed to her problems, but certainly did not initiate it. She was sent home with her prescriptions for omeprazole, sucralfate, oxycodone, acetaminophen. FINAL DIAGNOSES: 1. Gastritis. 2. Hiatal hernia. 3. Vomiting due to marijuana use. 4. Morbid obesity. 5. Asthma. DISCHARGE MEDICATIONS: 1. Omeprazole 40 mg daily. 2. Ondansetron ODT 4 mg sublingual every 4 hours p.r.n. 3. Oxycodone/acetaminophen 5/325 one every 4 hours p.r.n. 4. Sucralfate 1 g a.c. and h.s. for 14 days. [id number]/[facility] #: [id number] MTDD
--- NOTE | 2018-02-19 12:04 | PRO ---
DATE OF PROCEDURE: 02/17/18 - ROOM #333 PROCEDURE: EGD. INDICATION: Nausea and vomiting. REFERRING PHYSICIAN: Dr. Dowell. MEDICATIONS GIVEN: 1. 75 mcg IV fentanyl. 2. 10 mg IV Versed. PROCEDURE IN DETAIL: After the EGD procedure, including the risks, benefits, and alternatives, not limited to perforation, surgery and/or were explained to Ms. Reno, written consent was then obtained. IV medication was given and a bite-block was placed between the teeth. An Olympus gastroscope was then inserted into the patient's mouth, advanced down the esophagus, into the stomach, and into the distal duodenum. In the esophagus at the GE junction, the Z-line was intact. No erosive esophagitis, stricture, or ring was seen. The scope was advanced through the GE junction into the body of the stomach. Patient has a very large hiatal hernia. The hernia sac is very inflamed with gastritis. The scope was advanced into the antrum where biopsy for H. pylori was obtained. The scope was advanced through the widely patent pylorus, into the duodenal bulb and into the distal duodenum, both of which were unremarkable. The scope was withdrawn from the patient. She tolerated the procedure well and was returned to the hospital room in stable condition. IMPRESSION: 1. Complete upper endoscopy into the distal duodenum with biopsies. 2. Very large hiatal hernia with gastritis. 3. Biopsy for Helicobacter pylori. 4. I think her pain is coming from the gastritis and the hernia sac, likely it is exacerbated by cannabis, hyperemesis. Patient needs to stop smoking marijuana. She needs to start Carafate and use a PPI. [id number]/[facility] #: [id number] [facility]
--- NOTE | 2018-02-25 09:20 | CONS ---
CONSULTATION REPORT: DATE OF CONSULT: 02/17/18 INDICATION: Vomiting. NARRATIVE: Ms. 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 She then developed nausea and began to vomit. She continued to vomit and the pain got worse. She went to the [facility] a number of times and then eventually presented to [facility]. She denies having this type of pain before. She denies taking any nonsteroidal s. There has been no unintentional weight loss. No black stools. No bright red blood in her stool. Denies any change in her bowel habits. She does smoke marijuana on a daily basis. In the emergenc y room, she had a CT abdomen and pelvis, gallbladder ultrasound. The CT revealed hepatomegaly. No o ther abnormalities. Her gallbladder ultrasound revealed fatty infiltration of the liver. She was ad mitted to the hospital for nausea, vomiting, and abdominal pain, and I am seeing her now. PAST MEDICAL HISTORY: Asthma and obesity. PAST SURGICAL HISTORY: None. MEDICATIONS: Upon admission include: 1. Probiotic. 2. Albuterol as needed. ALLERGIES: None. FAMILY HISTORY: Diabetes. SOCIAL HISTORY: She smokes marijuana daily. Rare alcohol. No tobacco abuse. REVIEW OF SYSTEMS: Twelve systems were reviewed, other than that mentioned in the HPI were unremarka ble. PHYSICAL EXAM: Temperature is 98.9, blood pressure is 144/80, pulse is 51, respiratory rate of 22. General: Well-appearing female, in no apparent distress. Alert, oriented, pleasant, and fluent. SANTI NT: Mucous membranes are moist without lesions, ulcers, or exudate. Neck is supple. Trachea is mid line. Head is normocephalic, atraumatic. Heart: Regular rate and rhythm. No murmurs, rubs, or gal lops. Lungs: Clear to auscultation bilaterally. No wheezes, rales, or rhonchi. Abdomen: Positive bowel sounds, soft, tender in the epigastrium. No rebound, no guarding, no masses were felt, obese. Skin is warm and dry. Musculoskeletal: No CVA or spinal tenderness to palpation. Lymph: No supra clavicular or cervical lymphadenopathy. LABORATORY DATA: Of note, white count is 6.4, hemoglobin 11.7, platelets of 227. INR is 1.08. Sodiu m is 138. LFTs are unremarkable. RADIOLOGY DATA: Please see the HPI. ASSESSMENT AND PLAN: This is a pleasant, young, 22-year-old female with abdominal pain, nausea, and vomiting, possible etiologies would include erosive esophagitis, gastritis, peptic ulcer disease, can nabis hyperemesis. I had a long discussion with the patient regarding all this. I would like to beg in her evaluation with an upper endoscopy. I will make arrangements for. [id number]/[facility] #: [id number]
== END 2018-02-18 12:00 | disposition home or self-care (01) | DRG 241 ==
LOC: ED 15:20 → SSU 22:26 → OBSVTOIN 02-17 17:03
PROVIDERS: ADMIT Hospitalist; ATTEND Internal Medicine
PROC: 0DB68ZX Excision of Stomach, Via Natural or Artificial Opening Endoscopic, Diagnostic (ICD-10-PCS; principal; 2018-02-17)
DX: K29.70 Gastritis, unspecified, without bleeding (principal); K44.9 Diaphragmatic hernia without obstruction or gangrene; E66.01 Morbid (severe) obesity due to excess calories; J45.909 Unspecified asthma, uncomplicated; F12.90 Cannabis use, unspecified, uncomplicated; K76.0 Fatty (change of) liver, not elsewhere classified; F17.200 Nicotine dependence, unspecified, uncomplicated; R11.10 Vomiting, unspecified; Z72.89 Other problems related to lifestyle; Z82.49 Family history of ischemic heart disease and other diseases of the circulatory system
CPT/HCPCS: 36415; 74177; 76705; 76856; 80048; 80053; 81003; 82272; 82784; 83516; 83605; 83690; 83735; 84443; 84702; 85025; 85610; 85730; 86140; 87077; 87491; 87591; 99156; 99285; A9270-GY; J0780; J2060; J2250; J2270; J2405; J2765; J3010; J3475; Q9967

== ENCOUNTER 2018-09-27 21:21 | Inpatient (IN) | payer BC ==
[2018-09-27] MEDS ORDERED: Pantoprazole IV* 40 MG IV ONE (21:37)
[2018-09-27] MEDS ORDERED: Metoclopramide IV* 5 MG/ML 2 ML VIAL IV SLOW PU ONE (21:37)
[2018-09-27] MEDS ORDERED: NS 0.9% 1000 ML* 1,000 ML IV ONE (21:37)
[2018-09-27] MEDS ORDERED: LORazepam INJ* 2 MG/ML 1 ML VIAL IV PUSH ONE (21:38)
--- NOTE | 2018-09-27 21:42 | ED ---
GI/ HPI - HPI Summary HPI Summary: This patient is a 23 year old F presenting to [facility] with a chief complaint of emesis since this morning. Patient admits to smoking marijuana. Patient was seen at [facility] in February 2018 for the same symptoms with dx of hiatus hernia and gastritis. Patient was advised to not smoke marijuana however she continues to do so. The patient rates the pain 8/10 in severity. Symptoms aggravated by smoking marijuana. Symptoms alleviated by nothing. Patient notes she took 20 mg Bentyl at 19:00. - History of Current Complaint Chief Complaint: EDAbdPain Time Seen by Provider: 09/27/18 21:29 Stated Complaint: ABD PAIN Hx Obtained From: Patient, Medical Records Onset/Duration: Started Hours Ago, Atraumatic, Still Present Timing: Constant, Lasting Hours Severity: Mild Current Severity: Moderate Location of Pain: Epigastric Associated Signs and Symptoms: Positive: Nausea, Vomiting Alleviating Factor(s): Nothing - Additional Pertinent History Primary Care Physician: TREVOR - Allergy/Home Medications Allergies/Adverse Reactions: Allergies Allergy/AdvReac Type Severity Reaction Status Date / Time No Known Allergies Allergy Verified 02/15/18 16:27 PMH/Surg Hx/FS Hx/Imm Hx Endocrine/Hematology History: Reports: Hx Blood Disorders - SICKLE CELL TRAIT Denies: Hx Anticoagulant Therapy, Hx Blood Transfusions, Hx Bone Marrow Disease, Hx Diabetes, Hx Anemia, Hx Unexplained Bleeding Cardiovascular History: Denies: Hx Hypertension Respiratory History: Reports: Hx Asthma, Hx Seasonal Allergies Denies: Hx Chronic Bronchitis, Hx Chronic Obstructive Pulmonary Disease (COPD ), Hx Cystic Fibrosis, Hx Lung Cancer, Hx Pleural Effusion, Hx Pneumonia, Hx Pulmonary Edema, Hx Pulmonary Embolism, Hx Sleep Apnea GI History: Reports: Hx Diverticulosis, Hx Gastroesophageal Reflux Disease - NOT DX Denies: Hx Cirrhosis, Hx Crohn's Disease, Hx Gall Bladder Disease, Hx Gastrointestinal Bleed, Hx Hiatal Hernia, Hx Irritable Bowel, Hx Jaundice, Hx Obstructive Bowel, Hx Ileostomy, Hx Pyloric Stenosis, Hx Ulcer History: Denies: Hx Acute Renal Failure, Hx Benign Prostatic Hyperplasia, Hx Chronic Renal Failure, Hx Dialysis, Hx Kidney Infection, Hx Kidney Stones, Hx Renal Disease, Other Problems/Disorders Musculoskeletal History: Denies: Hx Arthritis, Hx Back Problems, Hx Bursitis, Hx Congenital Bone Abnormalities, Hx Fibromyalgia, Hx Gout, Hx Orthopedic Injury, Hx Osteoporosis, Hx Scoliosis Sensory History: Denies: Hx Contacts or Glasses, Hx Eye Injury, Hx Eye Prosthesis, Hx Glaucoma , Hx Legally Blind, Hx Macular Degeneration, Hx Vision Problem, Hx Deafness, Hx Hearing Aid Opthamlomology History: Denies: Hx Contacts or Glasses, Hx Eye Injury, Hx Eye Prosthesis, Hx Glaucoma , Hx Legally Blind, Hx Macular Degeneration, Hx Vision Problem Neurological History: Denies: Hx Headaches, Hx Migraine, Hx Nerve Disease, Hx Seizures Psychiatric History: Denies: Hx Anxiety, Hx Attention Deficit Hyperactivity Disorder, Hx Eating Disorder, Hx Depression, Hx Panic Disorder, Hx Post Traumatic Stress Disorder, Hx Inpatient Treatment, Hx Community Mental Health Tx, Hx Bipolar Disorder - Surgical History Hx Anesthesia Reactions: No Infectious Disease History: Denies: Hx Hepatitis, Hx Tuberculosis - Family History Known Family History: Positive: Hypertension - Social History Alcohol Use: Occasionally Substance Use Type: Reports: Marijuana Substance Use Comment - Amount & Last Used: 2 WEEKS AGO Smoking Status (MU): Never Smoked Tobacco Review of Systems Negative: Fever Negative: Epistaxis Negative: Chest Pain Negative: Cough Positive: Abdominal Pain, Vomiting All Other Systems Reviewed And Are Negative: Yes Physical Exam - Summary Physical Exam Summary: VITAL SIGNS: Reviewed. GENERAL: Patient is a morbidly obese FEMALE who is lying comfortable in the stretcher. Patient is not in any acute respiratory distress. HEAD AND FACE: No signs of trauma. No ecchymosis, hematomas or skull depressions. No sinus tenderness. EYES: PERRLA, EOMI x 2, No injected conjunctiva, no nystagmus. EARS: Hearing grossly intact. Ear canals and tympanic membranes are within normal limits. MOUTH: Oropharynx within normal limits. NECK: Supple, trachea is midline, no adenopathy, no JVD, no carotid bruit, no c- spine tenderness, neck with full ROM. CHEST: Symmetric, no tenderness at palpation LUNGS: Clear to auscultation bilaterally. No wheezing or crackles. CVS: Regular rate and rhythm, S1 and S2 present, no murmurs or gallops appreciated. ABDOMEN: Soft. Mild epigastric tenderness. No signs of distention. No rebound no guarding, and no masses palpated. Bowel sounds are normal. EXTREMITIES: FROM in all major joints, no edema, no cyanosis or clubbing. NEURO: Alert and oriented x 3. No acute neurological deficits. Speech is normal and follows commands. SKIN: Dry and warm Triage Information Reviewed: Yes Vital Signs Reviewed: Yes Diagnostics - Laboratory Result Diagrams: 09/27/18 21:47 09/27/18 21:47 Lab Statement: Any lab studies that have been ordered have been reviewed, and results considered in the medical decision making process. GIGU Course/Dx - Course Course Of Treatment: This patient is a 23 year old F presenting to [facility] with a chief complaint of emesis since this morning. Patient was seen at [facility] in February 2018 for the same symptoms with dx of hiatus hernia and gastritis. In February 2018, patient was advised to not smoke marijuana however she continues to do so. Patient notes she took 20 mg Bentyl at 19:00. Test results with no significant abnormalities. In the ED course the patient was given IV fluids, Reglan, Protonix, and Ativan. Patient is still in pain and vomiting at 23:03. Dr. Tate, hospitalist, was paged at 23:05. At 23:16 discussed patient care with Dr. Zuluaga, who agreed to admit the patient. Patient will be admitted to [facility]. Patient is agreeble with this plan. - Diagnoses Provider Diagnoses: Vomiting - Physician Notifications Discussed Care Of Patient With: Lit Zuluaga Time Discussed With Above Provider: 23:16 Instructed by Provider To: Admit As Inpatient Discharge - Sign-Out/Discharge Documenting (check all that apply): Patient Departure - Discharge Plan Condition: Stable Disposition: ADMITTED TO [facility] Prescriptions: Metoclopramide TAB* [Reglan TAB*] 10 mg PO Q6H PRN #20 tab PRN Reason: Nausea/Vomiting Patient Education Materials: Acute Nausea and Vomiting (ED) Referrals: [facility] [Outside] - 2 Days Additional Instructions: Follow up with primary care physician in 1-2 days. Return to the emergency department with any new or worsening symptoms. - Attestation Statements Document Initiated by Scribe: Yes Documenting Scribe: Ibis Vega Provider For Whom Scribe is Documenting (Include Credential): John Stoddard MD Scribe Attestation: Ibis Irby, scribed for John Stoddard MD on 09/27/18 at [id number]. Status of Scribe Document: Ready
[2018-09-27 21:55] LABS: ABS Basophils 0 10^3/ul (0-0.2); ABS Eosinophils 0 10^3/ul (0-0.6); ABS Lymphocytes 1.2 10^3/ul (1.0-4.8); ABS Monocytes 0.3 10^3/ul (0-0.8); ABS Nucleated RBC 0 10^3/ul; Eosinophil % 0.2 %; Hematocrit 38 % (35-47); Hemoglobin 12.5 g/dl (12.0-16.0); Mean Corpuscular HGB Conc 33 g/dl (31-36); Mean Corpuscular Hemoglobin 28 pg (27-31); Mean Corpuscular Volume 84 fL (80-97); Mean Platelet Volume 8.8 fL (7.4-10.4); Nucleated Red Blood Cells % 0.1; Platelet Count 262 10^3/ul (150-450); Red Blood Count 4.54 10^6/ul (4.00-5.40); Red Cell Distribution Width 14 % (10.5-15); White Blood Count 5.5 10^3/ul (3.5-10.8)
[2018-09-27 22:11] LABS: ALT 16 U/L (7-52); AST 16 U/L (13-39); Albumin 4.2 g/dL (3.2-5.2); Albumin/Globulin Ratio 1.2 (1-3); Alkaline Phosphatase 52 U/L (34-104); Amylase 58 U/L (29-103); Anion Gap 6 mmol/L (2-11); BUN/Creatinine Ratio 8.7 (8-20); Blood Urea Nitrogen 9 mg/dL (6-24); CO2 Carbon Dioxide 25 mmol/L (22-32); Calcium 9.4 mg/dL (8.6-10.3); Chloride 108 mmol/L (101-111); EGFR Non-African American 66.9 (>60); Globulin 3.4 g/dL (2-4); Glucose 103 mg/dL (70-100); Potassium 3.8 mmol/L (3.5-5.0); Sodium 139 mmol/L (135-145); Total Protein 7.6 g/dL (6.4-8.9)
[2018-09-27 22:17] LABS: HCG Pregnancy < 0.60 mIU/mL
[2018-09-27] MEDS ORDERED: Metoclopramide TAB* 10 MG PO ONE (22:41)
[2018-09-27] MEDS ORDERED: Ondansetron INJ* 2 MG/ML VIAL IV ONE (23:03)
[2018-09-27] MEDS ORDERED: Ketorolac INJ* 30 MG/ML 1 ML VIAL IV PUSH ONE (23:03)
[2018-09-27] MEDS ORDERED: Albuterol 2.5 MG/3 ML NEB.SOL* (0.083%) INH PRN (23:37)
[2018-09-28 01:13] LABS: Urine Appearance Clear; Urine Bacteria Absent (Absent); Urine Bilirubin Negative (Negative); Urine Blood 3+ (Negative); Urine Color Yellow; Urine Glucose Negative (Negative); Urine Ketones 2+ (Negative); Urine Nitrite Negative (Negative); Urine Protein Negative (Negative); Urine Red Blood Cell 1+(3-5/hpf) (Absent); Urine Specific Gravity 1.018 (1.010-1.030); Urine Urobilinogen Negative (Negative); Urine White Blood Cell Trace(0-5/hpf) (Absent)
[2018-09-28] MEDS: PROCHLORPERAZINE INJ 5 MG/ML 2 ML VIAL IV PRN (01:17)
[2018-09-28] MEDS: HYDROmorphone INJ1* 1 MG/ML SYRINGE IV SLOW PU PRN ×4 (01:18→22:11)
[2018-09-28 01:20] LABS: Barbiturates Urine Screen None Detected (None Detect); Benzodiazepine Urine Screen None Detected (None Detect); Urine Cannabinoids Screen Presumptive Positive (None Detect)
[2018-09-28] MEDS: Capsaicin 0.025% CREAM* 60 GM TOPICAL SCH ×3 (01:29→19:47)
[2018-09-28] MEDS: Scopolamine 1.5 mg* PATCH TRANSDERM SCH (01:30)
[2018-09-28] MEDS: Sucralfate TAB* 1 GM PO SCH ×5 (01:30→19:47)
--- NOTE | 2018-09-28 01:52 | HP ---
HISTORY AND PHYSICAL: DATE OF ADMISSION: 09/27/18 PRIMARY CARE PROVIDER: Unknown. ATTENDING PHYSICIAN WHILE IN THE HOSPITAL: Dr. Caroline Grande * (report dictated by Jeanine Strong NP). CHIEF COMPLAINT: 1. Nausea. 2. Vomiting. HISTORY OF PRESENT ILLNESS: Ms. Reno is a 23-year-old female patient with the known history of asthma, GERD, hiatal hernia, who back in February of this year had a similar presentation. There was concern for intractable nausea, vomiting. She underwent a pretty extensive workup, saw GI. They sent her on Carafate and Prilosec and was advised to abstain from smoking marijuana. She comes into the ED today stating that on Tuesday, she noticed that she started getting epigastric type discomfort, pain. She had episodes with nausea, vomiting. She says any she ate she vomited. She denies any coffee-ground emesis. No tarry stools. No fevers or chills reported. No shortness of breath. No chest pain. She says that she keep vomiting. She does state that she ate a pot brownie, she says a week and she says she is not smoking. She did state that on Tuesday, did drink at a alliance party. She does drink occasionally. She says that on Tuesday, the pain was just getting worse. She actually went to [facility] yesterday and the day before. She did have CT imaging there. We are trying to get those records. She apparently was discharged from there. The patient continued to have the nausea, vomiting. She sought care here at [facility]. She came into the ED, because of the intractable nausea and vomiting, we were asked to evaluate. Again, denied no dysuria, no vaginal discharge. She says she on a period. She denied having any again fevers or chills, but she is admitting to sharp, stabbing, epigastric pain that starts in the epigastric area and goes down to her umbilicus that is no better with food intake. Because of the fact, she continued to have nausea, vomiting, down here despite aggressive management by the ER, we were asked to evaluate for admission. She does state that warm showers help. PAST MEDICAL HISTORY: Significant for: 1. Obesity. 2. Asthma. 3. GERD. 4. Hiatal hernia. PAST SURGICAL HISTORY: Denied. MEDICATIONS: Home meds: She says she is not taking anything currently. She says that she is no longer on the Prilosec or the Carafate that she was sent home on. ALLERGIES TO MEDICATIONS: Include no known drug allergies. FAMILY HISTORY: Mother is diabetic. Father's history, she says he is healthy. SOCIAL HISTORY: She does have a history of marijuana use in the past. She says she has not smoked. She says last time she had anything was over a week ago. She does drink occasionally. Denies smoking tobacco. Surrogate decision maker is her mother. REVIEW OF SYSTEMS: There is no documented fever. She denied having any significant weight change. There is no double vision. She denies having any ear discharge. There is no chest pain, no orthopnea, no nocturnal dyspnea. There was no dysuria, no frequency. No seizure, no loss of consciousness. No pruritus and no skin ulcerations. There was nausea, vomiting, abdominal pain. Review of 14 systems completed, all others negative. PHYSICAL EXAMINATION GENERAL: At this time, Ms. Reno is a 23-year-old female patient. She is morbidly obese. She is sitting in the ED stretcher. She does not appear to be in any acute distress. VITAL SIGNS: Blood pressure 130/81, pulse of 50, O2 sat 98%, temperature of 98.1, respirations 16. HEENT: Head: Atraumatic, normocephalic. Eyes: EOMs are intact. Sclerae anicteric and not pale. Throat: Oral mucosa appears to be moist. No oropharyngeal erythema. NECK: Supple. LUNGS: Clear to auscultation bilaterally. There were no wheezes, rales, or rhonchi. HEART: Sounds S1, S2. She had a regular rate and rhythm. There are no murmurs , rubs, or gallops. ABDOMEN: Soft, it was flat. There was tenderness in the epigastric area. Bowel sounds are present. No CVA tenderness. EXTREMITIES: Pulses were 2+ throughout. She has no peripheral edema. Moving all 4 extremities with 5/5 strength. NEUROLOGIC: She is wake, alert, oriented x3. Tongue midline. Staff Weapons Officer were equal. No gross focal deficits. SKIN: Intact. DIAGNOSTIC STUDIES/LAB DATA: WBC of 5.5, RBC of 4.54, hemoglobin of 12.5, hematocrit of 38, and platelet count of 262. Sodium 139, potassium 3.8, chloride 108, bicarb 25, BUN 9, creatinine 1.04, glucose 103, calcium 9.4. Total bili 0.7, AST 16, ALT 16, alk phos 52. CRP 1.20. Albumin of 4.2. Amylase, lipase negative. Beta-hCG negative. She did have an upper endoscopy done in February of this year, 7 months ago which revealed very large hiatal hernia with gastritis. Old medical records were reviewed. ASSESSMENT AND PLAN: I have requested the CT imaging from [facility] as that was just done a day or so ago. I do not think we need to do this again. She will be admitted under observation status for: 1. Intractable nausea, vomiting with abdominal pain. Again, this thought to be secondary to the alcohol that she took on Tuesday, could also be secondary to cannabis use. I am checking a U-tox. I will go ahead and treat her aggressively with p.r.n. pain medications. I have ordered Compazine, Zofran, Scopolamine, Carafate, and I have ordered warm packs to the abdomen and capsaicin if needed, as she does state that warm showers help and it shown that with hyperemesis related to cannabis use capsaicin may help, particularly the cream. So, I am going to try to see if this helps her. We will go ahead and continue with supportive care. I will get the Carafate onboard as she certainly could be having a flare-up of her gastritis. If she does not improve , we can certainly get in touch with Gastroenterology. She does not appear to be actively infected. We will continue with supportive care with hydration, bowel rest, and n.p.o. 2. History of asthma. I wrote her p.r.n. albuterol. 3. Gastroesophageal reflux disease. I have restarted her proton pump inhibitor and Carafate. 4. DVT prophylaxis. She will be placed on SCDs. 5. Code status. Full code. 6. Fluids, electrolytes, and nutrition. N.p.o.. She will have normal saline at 125 an hour. TIME SPENT: On the admission was 60 minutes; greater than half the time was spent [id number] with the patient obtaining my history and physical, other half of the time spent going over the plan of care with the patient and implementing plan of care. I did discuss the plan of care with my attending, Dr. Grande; she is in agreement. JEANINE STRONG NP [id number]/CPS #: [id number] CARLA
[2018-09-28 06:37] LABS: ABS Basophils 0 10^3/ul (0-0.2); ABS Eosinophils 0 10^3/ul (0-0.6); ABS Lymphocytes 1.8 10^3/ul (1.0-4.8); ABS Monocytes 0.5 10^3/ul (0-0.8); ABS Neutrophils 3.5 10^3/ul (1.5-7.7); ABS Nucleated RBC 0 10^3/ul; Eosinophil % 0.3 %; Hematocrit 34 % (35-47); Hemoglobin 11.4 g/dl (12.0-16.0); Lymphocyte % 30.8 %; Mean Corpuscular HGB Conc 33 g/dl (31-36); Mean Corpuscular Hemoglobin 28 pg (27-31); Mean Corpuscular Volume 84 fL (80-97); Mean Platelet Volume 8.7 fL (7.4-10.4); Nucleated Red Blood Cells % 0.1; Platelet Count 213 10^3/ul (150-450); Red Blood Count 4.06 10^6/ul (4.00-5.40); Red Cell Distribution Width 14 % (10.5-15); White Blood Count 5.9 10^3/ul (3.5-10.8)
[2018-09-28 06:52] LABS: INR 1.07 (0.77-1.02)
[2018-09-28 06:59] LABS: BUN/Creatinine Ratio 10.8 (8-20); Calcium 8.8 mg/dL (8.6-10.3); EGFR Non-African American 76.1 (>60); Potassium 3.7 mmol/L (3.5-5.0)
[2018-09-28] MEDS: Omeprazole CAP* 20 MG PO SCH ×2 (07:32→15:31)
[2018-09-28] MEDS: NS 0.9% 1000 ML* 1,000 ML IV SCH ×2 (10:02→22:14)
[2018-09-28] MEDS: Ondansetron INJ* 2 MG/ML VIAL IV PRN (16:59)
--- NOTE | 2018-09-28 17:05 | PN ---
Subjective Date of Service: 09/28/18 Interval History: Patient seen and examined. Still with abdominal pain. Denies fever or chills. Discussed marijuana usage at length. No further complaints offered. Objective Active Medications: Albuterol (Ventolin 2.5 Mg/3 Ml Neb.Jessica*) 2.5 mg INH Q2H PRN PRN Reason: SOB/WHEEZING Capsaicin (Zostrix 0.025% Cream*) 1 applic TOPICAL BID [facility] Last Admin: 09/28/18 07:32 Dose: 1 applic Hydromorphone HCl (Dilaudid Inj1s*) 0.5 mg IV SLOW PU Q4H PRN PRN Reason: PAIN Last Admin: 09/28/18 16:55 Dose: 0.5 mg Sodium Chloride (Ns 0.9% 1000 Ml*) 1,000 mls @ 125 mls/hr IV PER RATE [facility] Last Admin: 09/28/18 10:02 Dose: 125 mls/hr Omeprazole (Prilosec Cap*) 20 mg PO BID AC [facility] Last Admin: 09/28/18 15:31 Dose: 20 mg Ondansetron HCl (Zofran Inj*) 4 mg IV Q6H PRN PRN Reason: NAUSEA Last Admin: 09/28/18 16:59 Dose: 4 mg Pharmacy Profile Note (Scopolamine Patch Remove*) 1 note PATCH OFF Q72H [facility] Prochlorperazine Edisylate (Compazine Inj*) 5 mg IV Q6H PRN PRN Reason: NAUSEA/VOMITING Last Admin: 09/28/18 01:17 Dose: 5 mg Scopolamine (Transderm-Scop 1.5 Mg Patch*) 1 patch TRANSDERM Q72H [facility] Last Admin: 09/28/18 01:30 Dose: 1 patch Sucralfate (Carafate*) 1 gm PO QID [facility] Last Admin: 09/28/18 15:31 Dose: 1 gm Vital Signs - 8 hr 09/28/18 09/28/18 09/28/18 10:17 11:24 11:39 Temperature 98.1 F Pulse Rate 44 Respiratory 18 16 18 Rate Blood Pressure 111/59 (mmHg) O2 Sat by Pulse 100 Oximetry 09/28/18 09/28/18 09/28/18 11:52 14:20 16:55 Temperature Pulse Rate 62 60 Respiratory 18 18 Rate Blood Pressure (mmHg) O2 Sat by Pulse 98 Oximetry Oxygen Devices in Use Now: None Appearance: alert, NAD Eyes: No Scleral Icterus, PERRLA Ears/Nose/Mouth/Throat: NL Teeth, Lips, Gums, Mucous Membranes Moist Neck: NL Appearance and Movements; NL JVP, Trachea Midline Respiratory: Symmetrical Chest Expansion and Respiratory Effort, Clear to Auscultation Cardiovascular: NL Sounds; No Murmurs; No JVD, RRR, No Edema Abdominal: - - no distension, mild tenderness to palpation Extremities: No Edema, No Clubbing, Cyanosis Skin: No Rash or Ulcers Neurological: Alert and Oriented x 3, NL Sensation, NL Gait, NL Muscle Strength and Tone Nutrition: - - tolerating CLD Result Diagrams: 09/28/18 06:13 09/28/18 06:13 Assess/Plan/Problems-Billing Assessment: This is a 23 year old female with history of cyclic vomiting 2/2 marijuana use, admitted for intractable abdominal pain and vomiting. - Patient Problems (1) Abdominal pain Code(s): R10.9 - UNSPECIFIED ABDOMINAL PAIN SNOMED Code(s): 85177554 Comment: - Associated with intractable nausea and vomiting - Smiliar episode earlier this year with no functional etiology - Patient admits to regular marijuana use and relief with hot showers - Recommend advancing diet, hot shower and continue IVF - Pain control PRN, antiemetics, IVF (2) Asthma Code(s): J45.909 - UNSPECIFIED ASTHMA, UNCOMPLICATED SNOMED Code(s): 504710659 Comment: - No exacerbation noted (3) DVT prophylaxis Code(s): WSM2763 - SNOMED Code(s): 049817903 Comment: - Encourage ambulation (4) Hiatal hernia Code(s): K44.9 - DIAPHRAGMATIC HERNIA WITHOUT OBSTRUCTION OR GANGRENE SNOMED Code(s): 45413830 Comment: - continue PPI and carafate (5) Morbid obesity with BMI of 45.0-49.9, adult Code(s): E66.01 - MORBID (SEVERE) OBESITY DUE TO EXCESS CALORIES; Z68.42 - BODY MASS INDEX (BMI) 45.0-49.9, ADULT SNOMED Code(s): 859151063 Comment: - BMI noted, recommend weight loss/control Status and Disposition: Inpatient, likely DC in AM if able to tolerate diet
[2018-09-29] MEDS: HYDROmorphone INJ1* 1 MG/ML SYRINGE IV SLOW PU PRN ×4 (05:14→20:58)
[2018-09-29] MEDS: Ondansetron INJ* 2 MG/ML VIAL IV PRN ×2 (05:34→16:53)
[2018-09-29] MEDS: NS 0.9% 1000 ML* 1,000 ML IV SCH ×2 (06:23→14:39)
[2018-09-29] MEDS: Capsaicin 0.025% CREAM* 60 GM TOPICAL SCH (07:49)
[2018-09-29] MEDS: Omeprazole CAP* 20 MG PO SCH (07:49)
[2018-09-29] MEDS: Sucralfate TAB* 1 GM PO SCH ×4 (07:49→20:18)
[2018-09-29] MEDS: PROCHLORPERAZINE INJ 5 MG/ML 2 ML VIAL IV PRN ×2 (12:46→20:15)
[2018-09-29] MEDS: Pantoprazole IV* 40 MG IV SCH (14:39)
--- NOTE | 2018-09-29 16:23 | PN ---
Subjective Date of Service: 09/29/18 Interval History: Pt here for abdominal pain. Pt seen this morning and was feeling well, stating no abdominal pain, nausea, or vomiting, and tolerating PO. Discharge was planned for the afternoon. Per nursing, pt started to experience intractable vomiting in the morning. Nurse states pt was retching, vomiting, and having severe abd pain. She was given Dilaudid, which did not work, per pt. She was also given Compazine, around 1300 and has been quiet and sleeping since. No nausea or vomiting reported since Compazine given. Objective Active Medications: Albuterol (Ventolin 2.5 Mg/3 Ml Neb.Jessica*) 2.5 mg INH Q2H PRN PRN Reason: SOB/WHEEZING Capsaicin (Zostrix 0.025% Cream*) 1 applic TOPICAL BID [facility] Last Admin: 09/29/18 07:49 Dose: Not Given Hydromorphone HCl (Dilaudid Inj1s*) 0.5 mg IV SLOW PU Q4H PRN PRN Reason: PAIN Last Admin: 09/29/18 10:29 Dose: 0.5 mg Sodium Chloride (Ns 0.9% 1000 Ml*) 1,000 mls @ 125 mls/hr IV PER RATE [facility] Last Admin: 09/29/18 14:39 Dose: 125 mls/hr Ondansetron HCl (Zofran Inj*) 4 mg IV Q6H PRN PRN Reason: NAUSEA Last Admin: 09/29/18 05:34 Dose: 4 mg Pantoprazole Sodium (Protonix Iv*) 40 mg IV DAILY [facility] Last Admin: 09/29/18 14:39 Dose: 40 mg Pharmacy Profile Note (Scopolamine Patch Remove*) 1 note PATCH OFF Q72H [facility] Prochlorperazine Edisylate (Compazine Inj*) 5 mg IV Q6H PRN PRN Reason: NAUSEA/VOMITING Last Admin: 09/29/18 12:46 Dose: 5 mg Scopolamine (Transderm-Scop 1.5 Mg Patch*) 1 patch TRANSDERM Q72H [facility] Last Admin: 09/28/18 01:30 Dose: 1 patch Sucralfate (Carafate*) 1 gm PO QID [facility] Last Admin: 09/29/18 16:17 Dose: Not Given Vital Signs - 8 hr 09/29/18 09/29/18 09/29/18 10:29 13:22 15:37 Temperature 97.6 F Pulse Rate 45 Respiratory 20 18 18 Rate Blood Pressure 117/50 (mmHg) O2 Sat by Pulse 100 Oximetry Oxygen Devices in Use Now: None Eyes: No Scleral Icterus, PERRLA Ears/Nose/Mouth/Throat: NL Teeth, Lips, Gums Respiratory: Symmetrical Chest Expansion and Respiratory Effort Cardiovascular: NL Sounds; No Murmurs; No JVD, RRR Abdominal: NL Sounds; No Tenderness; No Distention Neurological: Alert and Oriented x 3 Result Diagrams: 09/28/18 06:13 09/28/18 06:13 Microbiology and Other Data: Microbiology 09/28/18 00:54 Urine Culture - Final Urine Assess/Plan/Problems-Billing Assessment: This is a 23 year old female with history of cyclic vomiting 2/2 marijuana use, admitted for intractable abdominal pain and vomiting. - Patient Problems (1) Vomiting alone Code(s): R11.11 - VOMITING WITHOUT NAUSEA SNOMED Code(s): 823288343720592 Comment: -NPO -IVF -IV protonix ordered -GI consult ordered; reassess after GI consult and recommendations (2) Abdominal pain Code(s): R10.9 - UNSPECIFIED ABDOMINAL PAIN SNOMED Code(s): 35203334 Comment: -GI consult ordered -Pain control PRN, antiemetics, IVF (3) Asthma Code(s): J45.909 - UNSPECIFIED ASTHMA, UNCOMPLICATED SNOMED Code(s): 569529891 Comment: -No exacerbation noted (4) DVT prophylaxis Code(s): OGL3089 - SNOMED Code(s): 678108486 Comment: -Encourage ambulation (5) Hiatal hernia Code(s): K44.9 - DIAPHRAGMATIC HERNIA WITHOUT OBSTRUCTION OR GANGRENE SNOMED Code(s): 27709305 Comment: -Continue PPI and carafate (6) Morbid obesity with BMI of 45.0-49.9, adult Current Visit: No Status: Acute Code(s): E66.01 - MORBID (SEVERE) OBESITY DUE TO EXCESS CALORIES; Z68.42 - BODY MASS INDEX (BMI) 45.0-49.9, ADULT SNOMED Code(s): 503691773 Comment: -BMI noted, recommend weight loss/control Status and Disposition: Anticipate discharge to home in care of mother when medically stable.
[2018-09-29 17:53] LABS: ABS Basophils 0 10^3/ul (0-0.2); ABS Eosinophils 0.1 10^3/ul (0-0.6); ABS Lymphocytes 1.7 10^3/ul (1.0-4.8); ABS Monocytes 0.5 10^3/ul (0-0.8); ABS Neutrophils 3.5 10^3/ul (1.5-7.7); ABS Nucleated RBC 0 10^3/ul; Eosinophil % 1.5 %; Hematocrit 38 % (35-47); Hemoglobin 12.8 g/dl (12.0-16.0); Lymphocyte % 29.5 %; Mean Corpuscular HGB Conc 33 g/dl (31-36); Mean Corpuscular Hemoglobin 28 pg (27-31); Mean Corpuscular Volume 85 fL (80-97); Nucleated Red Blood Cells % 0.1; Platelet Count 236 10^3/ul (150-450); Red Blood Count 4.53 10^6/ul (4.00-5.40); Red Cell Distribution Width 14 % (10.5-15); White Blood Count 5.8 10^3/ul (3.5-10.8)
[2018-09-29] MEDS ORDERED: Simethicone TAB* 80 MG TAB.CHEW PO PRN (17:54)
[2018-09-29 18:07] LABS: ALT 17 U/L (7-52); AST 16 U/L (13-39); Albumin/Globulin Ratio 1.3 (1-3); Alkaline Phosphatase 48 U/L (34-104); Anion Gap 7 mmol/L (2-11); BUN/Creatinine Ratio 6.3 (8-20); Blood Urea Nitrogen 6 mg/dL (6-24); C Reactive Protein < 1.00 mg/L (<8.01); CO2 Carbon Dioxide 24 mmol/L (22-32); Calcium 9.2 mg/dL (8.6-10.3); Chloride 107 mmol/L (101-111); EGFR Non-African American 74.3 (>60); Globulin 3.2 g/dL (2-4); Glucose 92 mg/dL (70-100); Potassium 3.9 mmol/L (3.5-5.0); Sodium 138 mmol/L (135-145); Total Protein 7.2 g/dL (6.4-8.9)
[2018-09-29 18:13] LABS: LDH 207 U/L (140-271)
--- NOTE | 2018-09-29 22:37 | CONS ---
GASTROENTEROLOGY CONSULTATION DATE OF CONSULT: 09/29/18 REFERRING PHYSICIAN: Karlene Jerome MD; RADHA Paez. REASON FOR CONSULTATION: Continuing nausea and vomiting after 48 hours in the hospital; previously admitted with a similar illness, February 2018. Initial history limited as the patient became more and more uncomfortable moving about in the bed and crying and sending her for Xrays seemed the priority. 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 She motions to the infraumbilical area bilaterally and that it would then spread to the upper abdomen without any particular locality. She went to the [place] [facility]. Their notes reviewed the history of abdominal pain and that of marijuana use with the use of warm showers. She had labs and a CT of the abdomen and pelvis that did not show anything. The notes state that she was improved and discharged home with Zofran and dicyclomine. She had recurring symptoms, went back to the emergency room in [place] the next day. No more imaging was done. She seemed to settle down symptomatically and was sent home once again. She then came to [facility] Room on 09/27/18, two days ago, where the examining hospitalist described her as being morbidly obese, sitting in the ER stretcher and not in acute distress at that moment. She was described as having tenderness in the epigastric area. Bowel sounds awere present. Over the next 2 days, she has been afebrile throughout. She was said to be more comfortable first thing this morning and then had recurrence of vomiting and complained of abdominal pain. Her labs had been normal. No additional imaging was done. She is being treated with topical capsaicin, IV Protonix daily, sucralfate p.o. and periodic injections of Dilaudid. Last February, she says she had similar symptoms and thinks it was the same process then. She was vomiting. Dr Marte saw her and did upper endoscopy, 02/18/18, that showed a large hiatal hernia with gastritis. She was sent home on a PPI though only took it briefly The patient states that she has been generally okay since that admission through the summer back home in the [place] and was feeling well earlier in the semester. She says she went home for Thanksgiving and did have traditional foods for Thanksgiving. Last week, she recalls she was fine. The evening before this presentation, she had some takeout [place] food that did not seem unusual in any way. She states she has never had any gastrointestinal evaluations in previous years. She has not been on any special diet at home. Her bowel habit is once or twice a day without blood. She was having her menstrual cycle day 2, when the symptoms began this week and the cycle ended 2 days ago. During the February 2018 admission here, she had an unremarkable gallbladder ultrasound (apart from fatty liver). A CT scan of the abdomen and pelvis with the same findings. Her labs were normal then with a white count 5.7 to 6.4, consistent with this admission. Her chemistries were normal with normal LFTs. PAST MEDICAL HISTORY: 1. Morbid obesity. 2. Asthma. 3. Hiatal hernia. 4. GERD. PAST SURGICAL HISTORY: None. MEDICATIONS: At home, nothing routinely. ALLERGIES: None to medicines. FAMILY HISTORY: Her father, she says, is healthy. Her mother is diabetic. SOCIAL HISTORY: Her mother is a surrogate decision maker. She has smoked marijuana fairly frequently. REVIEW OF SYSTEMS: No rash, fever, headache, NSAID use, hemoptysis, chest pain , hepatitis, jaundice, rectal bleeding, falls, or trauma. PHYSICAL EXAM: She was sleeping as I entered the room but aroused easily. She was speaking very softly. During the conversation, she began complaining of pain and became distraught and was crying. She indicated same distribution of pain from the infraumbilical area up towards the epigastrium. She said it was neither right nor left sided. She was not vomiting. HEENT: Exam is unremarkable though obesity limits abdominal exam. She is teary eyed. She has no adenopathy. Lungs are clear. Her heart sounds are regular. Breast and pelvic exams were deferred. Her abdomen seemed symmetric, obese with an early panniculus. There is no cellulitis. No hernia is palpated. Bowel sounds are normal. The abdomen seemed soft and pliable without any focal tenderness. Rectal deferred. Extremities show no edema. Neurologic is grossly symmetric though it cannot be done in detail as she is distraught. DIAGNOSTIC STUDIES/LAB DATA: LFTs normal, amylase 58, lipase 27, CRP 1.20, white count 5.9, hemoglobin 11.4, hematocrit 34, platelets 213. Urinalysis benign and the protein is negative and leukocytes negative (though there is 3+ blood, menstrual sample). Outside record reviewed - CT scan in [place] unremarkable and labs normal. IMPRESSION: This 23-year-old woman has had less than a week of N+V. This is her second admission for N+V, 7 months after another admission (also at the end of the semester?), now is seeming to have more in the way of abdominal pain as opposed to pure nausea and vomiting although both have been present today. It is a little unusual for cannabis or stress-related gastrointestinal distress to persist or even flare by the third hospital day. This makes it important to rule out an internal obstruction from an internal hernia or even an external hernia, which could easily hide in a woman with substantial obesity. The history does not suggest inflammatory bowel disease or peptic ulcer disease. Being n.p.o. and 3 days on parenteral PPIs would tamp down most patients with a peptic process. At the moment, 2 views of the abdomen and redrawing labs appear appropriate. Surgical and Gynecologic consults may be appropriate. [id number]/[facility] #: [id number] [facility]
[2018-09-30] MEDS: Capsaicin 0.025% CREAM* 60 GM TOPICAL SCH ×4 (01:07→21:05)
[2018-09-30] MEDS: NS 0.9% 1000 ML* 1,000 ML IV SCH ×2 (01:09→07:44)
[2018-09-30] MEDS: Sucralfate TAB* 1 GM PO SCH ×4 (07:45→21:05)
[2018-09-30] MEDS: Pantoprazole IV* 40 MG IV SCH (07:45)
[2018-09-30] MEDS: Ondansetron INJ* 2 MG/ML VIAL IV PRN (08:58)
[2018-09-30] MEDS: HYDROmorphone INJ1* 1 MG/ML SYRINGE IV SLOW PU PRN ×2 (08:58→13:42)
--- NOTE | 2018-09-30 17:55 | PN ---
Subjective Date of Service: 09/30/18 Interval History: Patient seen and examined. States she had pain again overnight and this morning but no nausea and then vomited after pain medication administered. Denies fever or chills, no SOB, no chest pain, no further complaints. Objective Active Medications: Albuterol (Ventolin 2.5 Mg/3 Ml Neb.Jessica*) 2.5 mg INH Q2H PRN PRN Reason: SOB/WHEEZING Capsaicin (Zostrix 0.025% Cream*) 1 applic TOPICAL BID [facility] Last Admin: 09/30/18 09:05 Dose: 1 applic Ondansetron HCl (Zofran Odt Tab*) 4 mg PO Q6H PRN PRN Reason: NAUSEA Pantoprazole Sodium (Protonix Tab (Nf)) 40 mg PO DAILY [facility] Pharmacy Profile Note (Scopolamine Patch Remove*) 1 note PATCH OFF Q72H [facility] Scopolamine (Transderm-Scop 1.5 Mg Patch*) 1 patch TRANSDERM Q72H [facility] Last Admin: 09/28/18 01:30 Dose: 1 patch Simethicone (Mylicon Tab*) 80 mg PO Q6H PRN PRN Reason: DYSPEPSIA Sucralfate (Carafate*) 1 gm PO QID [facility] Last Admin: 09/30/18 17:08 Dose: 1 gm Vital Signs - 8 hr 09/30/18 09/30/18 09/30/18 10:00 13:42 14:58 Respiratory 16 18 16 Rate Oxygen Devices in Use Now: None Appearance: alert, NAD Eyes: No Scleral Icterus, PERRLA Ears/Nose/Mouth/Throat: NL Teeth, Lips, Gums Neck: NL Appearance and Movements; NL JVP, Trachea Midline Respiratory: Symmetrical Chest Expansion and Respiratory Effort, Clear to Auscultation Cardiovascular: NL Sounds; No Murmurs; No JVD, RRR Abdominal: NL Sounds; No Tenderness; No Distention Skin: No Rash or Ulcers, No Nodules or Sclerosis Neurological: Alert and Oriented x 3, NL Sensation, NL Gait Nutrition: - - NPO overnight Result Diagrams: 09/29/18 17:35 09/29/18 17:35 Microbiology and Other Data: Microbiology 09/28/18 00:54 Urine Culture - Final Urine Diagnostic Imaging: Patient Name: JOSUE JEFFERY Medical Record#: [id number] Ordering Physician: Gay Bermudez NP Acct.#: [id number] : 1995 Age: 23 Sex: F Location: [address] [place] [address] Exam Date: 09/29/18 1657 ADM Status: ADM IN Order Information: ABDOMEN (COMPLETE) 2 [facility] Accession Number: [id number] CPT: 47840 INDICATION: Abdominal pain. COMPARISON: Comparison is made with a prior CT of the abdomen and pelvis from February 15, 2018. TECHNIQUE: Supine and upright views of the abdomen were obtained. FINDINGS: The small bowel and colon appear nondistended. No free intraperitoneal air is seen. There is a mild lumbar scoliosis convex toward the right side. There is mild to moderate bilateral osteoarthritic change. IMPRESSION: NO EVIDENCE FOR OBSTRUCTION. <Electronically signed by Emory Fan MD in [place]> 09/29/181740 Dictated By: Emory Fan MD Dictated Date/Time: 09/29/18 174 Transcribed Date/Time: 09/29/181737 Copy to: Patient Name: JOSUE JEFFERY Medical Record#: [id number] Ordering Physician: Darryl Manning MD Acct.#: [id number] : 1995 Age: 23 Sex: F Location: [address] [place] [address] Exam Date: 09/29/18 1726 ADM Status: ADM IN Order Information: CHEST PA & LAT 2 [facility] Accession Number: [id number] CPT: 58502 HISTORY: upper abdominal pain COMPARISONS: None VIEWS: 4: Frontal dual-energy and lateral views of the chest. FINDINGS: CARDIOMEDIASTINAL SILHOUETTE: The cardiac silhouette is mildly enlarged. JENNIFER: The jennifer are normal. PLEURA: The costophrenic angles are sharp. No pleural abnormalities are noted. LUNG PARENCHYMA: The lungs are clear. ABDOMEN: The upper abdomen is clear. There is no subphrenic gas. BONES AND SOFT TISSUES: No bone or soft tissue abnormalities are noted. OTHER: None. IMPRESSION: MILD CARDIOMEGALY. THE DIFFERENTIAL INCLUDES PERICARDIAL EFFUSION. R1F Preliminary Imaging Read R1F <Electronically signed by Sushil Donald MD in [place]> 09/30/18728 Dictated By: Sushil Donald MD Dictated Date/Time: 09/30/18728 Transcribed Date/Time: 09/30/18727 Copy to: Assess/Plan/Problems-Billing Assessment: This is a 23 year old female with history of cyclic vomiting 2/2 marijuana use, admitted for intractable abdominal pain and vomiting. - Patient Problems (1) Abdominal pain Code(s): R10.9 - UNSPECIFIED ABDOMINAL PAIN SNOMED Code(s): 51285586 Comment: - GI consult appreciated - Imaging as above, labs unremarkable, CT at [facility] reviewed, also unremarkable - Tolerating FLD today - Vomiting persistent but only after IV pain medication administered, vomiting at this point is likely due to narcotics, as she has had no nausea otherwise, patient stated yesterday that she felt better after having clears so pain does not appear to be related to food intake - Transition to PO meds, IV pain meds discontinued - Continue PPI, oral zofran and carafate - IVF discontinued - Recommend outpatient follow up with her local PCP in [facility] (2) Asthma Code(s): J45.909 - UNSPECIFIED ASTHMA, UNCOMPLICATED SNOMED Code(s): 779168605 Comment: - No exacerbation noted (3) Hiatal hernia Code(s): K44.9 - DIAPHRAGMATIC HERNIA WITHOUT OBSTRUCTION OR GANGRENE SNOMED Code(s): 67394470 Comment: - Continue PPI and carafate (4) Morbid obesity with BMI of 45.0-49.9, adult Code(s): E66.01 - MORBID (SEVERE) OBESITY DUE TO EXCESS CALORIES; Z68.42 - BODY MASS INDEX (BMI) 45.0-49.9, ADULT SNOMED Code(s): 040358320 Comment: - BMI noted, recommend weight loss/control - Mild cardiomegaly on CXR likely r/t morbid obesity (5) DVT prophylaxis Code(s): PFR6332 - SNOMED Code(s): 193429288 Comment: - Encourage ambulation Status and Disposition: Patient's family [place] and will be able to pick her up in the morning, as student housing unavailable. Will DC in AM when her mother arrives.
[2018-09-30] MEDS: Ondansetron ODT TAB* 4 MG PO PRN (20:45)
[2018-09-30] MEDS ORDERED: Pantoprazole IV* 40 MG IV ONE (22:00)
[2018-09-30] MEDS ORDERED: Prochlorperazine TAB* 10 MG PO ONE (22:00)
[2018-09-30] MEDS ORDERED: LORazepam INJ* 2 MG/ML 1 ML VIAL IV PUSH ONE (22:30)
[2018-10-01] MEDS: Scopolamine PATCH Remove* 1 NOTE MISC PATCH OFF SCH (00:35)
[2018-10-01] MEDS: Scopolamine 1.5 mg* PATCH TRANSDERM SCH (00:36)
--- NOTE | 2018-10-01 00:37 | PN ---
Hospitalist Progress Note Date of Service: 09/30/18 called to bedside due to abd pain and intractable n/v ---> staff wants something for pain ---> this process description writer went over day team note and gi and abd x ray ---> abd exam is benign but pt was crying ---> ? anxiety ---> sbp wnl ativan 1 mg iv given ---> ck later sleeping
[2018-10-01] MEDS: Ondansetron ODT TAB* 4 MG PO PRN (05:20)
[2018-10-01] MEDS ORDERED: Ketorolac INJ* 30 MG/ML 1 ML VIAL IV STA (05:56)
[2018-10-01] MEDS ORDERED: Pantoprazole IV* 40 MG IV ONE (06:00)
[2018-10-01] MEDS ORDERED: PROCHLORPERAZINE INJ 5 MG/ML 2 ML VIAL ONE (06:57)
[2018-10-01] MEDS: PROCHLORPERAZINE INJ 5 MG/ML 2 ML VIAL IV PRN ×2 (07:01→07:23)
--- NOTE | 2018-10-01 07:05 | PN ---
Hospitalist Progress Note Date of Service: 10/01/18 pt slept until 5ish and woke up with abd pain and intractable vomiting again four times with orange stuff coming out. ppi along with toradol ordered ct with iv contrast ordered pt got zofran and still vomiting will ck her a1c with am lab and compazine 10 mg ivp q 6 prn ordered in addition to zofran
[2018-10-01] MEDS: Sucralfate TAB* 1 GM PO SCH ×4 (07:26→20:34)
[2018-10-01] MEDS ORDERED: Omeprazole CAP* 20 MG PO SCH (07:30)
[2018-10-01] MEDS ORDERED: Metoclopramide IV* 5 MG/ML 2 ML VIAL IV SLOW PU ONE (08:31)
[2018-10-01] MEDS ORDERED: HYDROmorphone INJ1* 1 MG/ML SYRINGE IV SLOW PU ONE (08:32)
[2018-10-01 09:09] LABS: Magnesium 1.7 mg/dL (1.9-2.7)
[2018-10-01] MEDS ORDERED: Iohexol 300* (CONTRAST) 10 ML SDV IV ONE (09:18)
[2018-10-01] MEDS: Capsaicin 0.025% CREAM* 60 GM TOPICAL SCH ×2 (09:21→20:34)
[2018-10-01] MEDS ORDERED: Magnesium Sulfate 2 GM IV* 2 GM/50 ML BAG IVPB ONE (10:45)
[2018-10-01] MEDS ORDERED: Metoclopramide IV* 5 MG/ML 2 ML VIAL IV SLOW PU PRN (13:47)
[2018-10-01] MEDS ORDERED: LORazepam INJ* 2 MG/ML 1 ML VIAL IV PUSH PRN (13:48)
[2018-10-01] MEDS: Pantoprazole IV* 40 MG IV SCH ×2 (14:08→20:35)
--- NOTE | 2018-10-01 16:23 | PN ---
Subjective Date of Service: 10/01/18 Interval History: Patient this AM was vomiting and having severe abdominal pain. This was despite toradol, protonix and compazine overnight. Patient was not able to sleep well for the majority of the night. Patient denied hematemesis, hematochezia, chest pain, SOB, F/C, dizziness, or other pain. Patient denied any alleviating or provoking factors for her pain. Patient stated the pain was severe and present on the midline of her abdomen. Patient was given reglan and dilaudid and her pain and nausea resolved almost completely. Patient when initially examined was able to easily answer questions despite reported severe pain and nausea. Family History: Unchanged from Admission Social History: Unchanged from Admission Past Medical History: Unchanged from Admission Objective Active Medications: Albuterol (Ventolin 2.5 Mg/3 Ml Neb.Jessica*) 2.5 mg INH Q2H PRN PRN Reason: SOB/WHEEZING Capsaicin (Zostrix 0.025% Cream*) 1 applic TOPICAL BID [facility] Last Admin: 10/01/18 09:21 Dose: 1 applic Lorazepam (Ativan Inj*) 0.5 mg IV PUSH Q4H PRN PRN Reason: ANXIETY Metoclopramide HCl (Reglan Iv*) 5 mg IV SLOW PU Q6H PRN PRN Reason: NAUSEA Ondansetron HCl (Zofran Odt Tab*) 4 mg PO Q6H PRN PRN Reason: NAUSEA Last Admin: 10/01/18 05:20 Dose: 4 mg Pantoprazole Sodium (Protonix Iv*) 40 mg IV BID [facility] Last Admin: 10/01/18 14:08 Dose: 40 mg Pharmacy Profile Note (Scopolamine Patch Remove*) 1 note PATCH OFF Q72H [facility] Last Admin: 10/01/18 00:35 Dose: 1 patch Scopolamine (Transderm-Scop 1.5 Mg Patch*) 1 patch TRANSDERM Q72H [facility] Last Admin: 10/01/18 00:36 Dose: 1 patch Simethicone (Mylicon Tab*) 80 mg PO Q6H PRN PRN Reason: DYSPEPSIA Last Admin: 09/30/18 21:05 Dose: 80 mg Sucralfate (Carafate*) 1 gm PO QID [facility] Last Admin: 10/01/18 12:59 Dose: 1 gm Vital Signs - 8 hr 10/01/18 10/01/18 10/01/18 09:12 10:22 12:01 Temperature 98.1 F Pulse Rate 48 Respiratory 18 16 20 Rate Blood Pressure 130/59 (mmHg) O2 Sat by Pulse 99 Oximetry 10/01/18 15:33 Temperature 97.6 F Pulse Rate 57 Respiratory 16 Rate Blood Pressure 135/72 (mmHg) O2 Sat by Pulse 100 Oximetry Oxygen Devices in Use Now: None Appearance: Patient is a 23yo female who appears stated age and is sitting in the bed in NAD. Eyes: No Scleral Icterus, PERRLA Ears/Nose/Mouth/Throat: NL Teeth, Lips, Gums, Clear Oropharnyx, Mucous Membranes Moist Neck: NL Appearance and Movements; NL JVP, Trachea Midline Respiratory: Symmetrical Chest Expansion and Respiratory Effort, Clear to Auscultation Cardiovascular: NL Sounds; No Murmurs; No JVD, RRR, No Edema Abdominal: NL Sounds; No Tenderness; No Distention, No Hepatosplenomegaly, - - Tender to palpation diffusely. Lymphatic: No Cervical Adenopathy Extremities: No Edema, No Clubbing, Cyanosis Skin: No Rash or Ulcers, No Nodules or Sclerosis Neurological: Alert and Oriented x 3, NL Sensation, NL Muscle Strength and Tone , - - CN II-XII intact. Result Diagrams: 09/29/18 17:35 09/29/18 17:35 Microbiology and Other Data: Microbiology 09/28/18 00:54 Urine Culture - Final Urine Assess/Plan/Problems-Billing Assessment: This is a 23 year old female with history of cyclic vomiting 2/2 marijuana use, admitted for intractable abdominal pain and vomiting with a waxing and waning course. - Patient Problems (1) Vomiting alone Current Visit: Yes Status: Acute Code(s): R11.11 - VOMITING WITHOUT NAUSEA SNOMED Code(s): 727479348415493 Comment: - Low Fat diet currently - IVF stopped due to oral intake - IV protonix ordered BID - GI consult appreciated, agree with assessment that this may be psychiatrically related, however, due to severity of symptoms, will monitor for the possibility of EGD in AM. (2) Abdominal pain Current Visit: No Status: Acute Code(s): R10.9 - UNSPECIFIED ABDOMINAL PAIN SNOMED Code(s): 50204871 Comment: - GI consult appreciated - Imaging unremarkable, - Tolerating low fat diet today - Vomiting recurrent overnight. Very responsive to reglan, continue PRN. - Transition to PO meds when able - Continue PPI, oral zofran and carafate - Recommend outpatient follow up with her local PCP in [facility] (3) Asthma Current Visit: No Status: Acute Code(s): J45.909 - UNSPECIFIED ASTHMA, UNCOMPLICATED SNOMED Code(s): 725497851 Comment: - No exacerbation noted (4) Hiatal hernia Current Visit: No Status: Acute Code(s): K44.9 - DIAPHRAGMATIC HERNIA WITHOUT OBSTRUCTION OR GANGRENE SNOMED Code(s): 66179294 Comment: - Continue PPI and carafate - Possible Repeat EGD in AM. (5) DVT prophylaxis Current Visit: No Status: Acute Code(s): PAQ8987 - SNOMED Code(s): 420291998 Comment: - Encourage ambulation Status and Disposition: D/C when stable and able to tolerate PO. Hopeful discharge tomorrow.
[2018-10-02] MEDS ORDERED: Acetaminophen TAB* 325 MG PO PRN (04:04)
[2018-10-02] MEDS: Ondansetron ODT TAB* 4 MG PO PRN ×2 (04:19→21:04)
[2018-10-02] MEDS: Acetaminophen TAB* 325 MG ONE ×2 (04:34→04:35)
[2018-10-02 06:04] LABS: ABS Basophils 0.1 10^3/ul (0-0.2); ABS Eosinophils 0.1 10^3/ul (0-0.6); ABS Lymphocytes 1.2 10^3/ul (1.0-4.8); ABS Monocytes 0.8 10^3/ul (0-0.8); ABS Neutrophils 4.6 10^3/ul (1.5-7.7); ABS Nucleated RBC 0 10^3/ul; Eosinophil % 1.3 %; Hematocrit 38 % (35-47); Mean Corpuscular HGB Conc 34 g/dl (31-36); Mean Corpuscular Hemoglobin 28 pg (27-31); Mean Corpuscular Volume 84 fL (80-97); Mean Platelet Volume 8.6 fL (7.4-10.4); Nucleated Red Blood Cells % 0; Platelet Count 237 10^3/ul (150-450); Red Blood Count 4.58 10^6/ul (4.00-5.40); Red Cell Distribution Width 14 % (10.5-15); White Blood Count 6.8 10^3/ul (3.5-10.8)
[2018-10-02 06:37] LABS: BUN/Creatinine Ratio 7.9 (8-20); Calcium 9.2 mg/dL (8.6-10.3); EGFR Non-African American 69.2 (>60); Magnesium 1.9 mg/dL (1.9-2.7); Potassium 3.4 mmol/L (3.5-5.0)
[2018-10-02] MEDS ORDERED: LORazepam TAB(*) 0.5 MG PO PRN (10:09)
[2018-10-02] MEDS ORDERED: Metoclopramide TAB* 10 MG PO PRN (10:09)
[2018-10-02] MEDS: Pantoprazole IV* 40 MG IV SCH ×2 (10:54→21:48)
[2018-10-02] MEDS: Sucralfate TAB* 1 GM PO SCH ×4 (10:54→21:40)
[2018-10-02] MEDS: Capsaicin 0.025% CREAM* 60 GM TOPICAL SCH (11:16)
[2018-10-02] MEDS ORDERED: Metoclopramide IV* 5 MG/ML 2 ML VIAL IV SLOW PU ONE (12:35)
[2018-10-02] MEDS: Metoclopramide IV* 5 MG/ML 2 ML VIAL IV SLOW PU SCH ×2 (14:25→19:31)
--- NOTE | 2018-10-02 14:42 | PN ---
Subjective Date of Service: 10/02/18 Interval History: Patient this AM was feeling well and ready to go home. Patient had episodes of vomiting overnight with bilious material and no blood. Patient also had intermittent abdominal pain. Patient denies F/C, CP, SOB, dizziness, oliguria, passing out, or other alarming symptoms. After being told of discharge, patient was very anxious and began again to vomit with significant abdominal pain. Patient vomited through late morning into afternoon. Patient denied any improvement from Reglan and Ativan. Patient's main stress has been that she was expelled from school for marijuana abuse and that she does not know how her family will respond to this. Family History: Unchanged from Admission Social History: Unchanged from Admission Past Medical History: Unchanged from Admission Objective Active Medications: Acetaminophen (Tylenol Tab*) 650 mg PO Q6H PRN PRN Reason: PAIN Albuterol (Ventolin 2.5 Mg/3 Ml Neb.Jessica*) 2.5 mg INH Q2H PRN PRN Reason: SOB/WHEEZING Capsaicin (Zostrix 0.025% Cream*) 1 applic TOPICAL BID [facility] Last Admin: 10/02/18 11:16 Dose: Not Given Lorazepam (Ativan Tab(*)) 0.5 mg PO Q6H PRN PRN Reason: ANXIETY Last Admin: 10/02/18 10:51 Dose: 0.5 mg Lorazepam (Ativan Inj*) 0.5 mg IV PUSH Q4H PRN PRN Reason: ANXIETY Metoclopramide HCl (Reglan Iv*) 5 mg IV SLOW PU Q6H [facility] Last Admin: 10/02/18 14:25 Dose: 5 mg Ondansetron HCl (Zofran Odt Tab*) 4 mg PO Q6H PRN PRN Reason: NAUSEA Last Admin: 10/02/18 04:19 Dose: 4 mg Pantoprazole Sodium (Protonix Iv*) 40 mg IV BID [facility] Last Admin: 10/02/18 10:54 Dose: 40 mg Pharmacy Profile Note (Scopolamine Patch Remove*) 1 note PATCH OFF Q72H [facility] Last Admin: 10/01/18 00:35 Dose: 1 patch Scopolamine (Transderm-Scop 1.5 Mg Patch*) 1 patch TRANSDERM Q72H [facility] Last Admin: 10/01/18 00:36 Dose: 1 patch Simethicone (Mylicon Tab*) 80 mg PO Q6H PRN PRN Reason: DYSPEPSIA Last Admin: 09/30/18 21:05 Dose: 80 mg Sucralfate (Carafate*) 1 gm PO QID [facility] Last Admin: 10/02/18 13:34 Dose: Not Given Vital Signs - 8 hr 10/02/18 10/02/18 10/02/18 07:21 09:56 10:51 Temperature 98.3 F Pulse Rate 53 Respiratory 20 16 20 Rate Blood Pressure 111/88 (mmHg) O2 Sat by Pulse 100 Oximetry 10/02/18 10/02/18 10/02/18 11:35 11:56 13:34 Temperature 98.8 F Pulse Rate 50 Respiratory 18 18 18 Rate Blood Pressure 148/93 (mmHg) O2 Sat by Pulse 100 Oximetry Oxygen Devices in Use Now: None Appearance: Patient is a 23yo female who appears stated age and is sitting in the bed in [facility]. Eyes: No Scleral Icterus, PERRLA Ears/Nose/Mouth/Throat: NL Teeth, Lips, Gums, Clear Oropharnyx, Mucous Membranes Moist Neck: NL Appearance and Movements; NL JVP, Trachea Midline Respiratory: Symmetrical Chest Expansion and Respiratory Effort, Clear to Auscultation Cardiovascular: NL Sounds; No Murmurs; No JVD, RRR, No Edema Abdominal: No Hepatosplenomegaly, - - Hypoactive bowel sounds. Lymphatic: No Cervical Adenopathy Extremities: No Edema, No Clubbing, Cyanosis Skin: No Rash or Ulcers, No Nodules or Sclerosis Neurological: Alert and Oriented x 3, NL Sensation, NL Muscle Strength and Tone , - - CN II-XII intact. Result Diagrams: 10/02/18 05:51 10/02/18 05:51 Microbiology and Other Data: Microbiology 09/28/18 00:54 Urine Culture - Final Urine Diagnostic Imaging: Patient Name: JOSUE JEFFERY Medical Record#: [id number] Ordering Physician: Gay Bermudez NP Acct.#: [id number] : 1995 Age: 23 Sex: F Location: [address] [place] [address] - MEDICAL Exam Date: 09/29/18 165 ADM Status: ADM IN Order Information: ABDOMEN (COMPLETE) 2 S Accession Number: [id number] CPT: 01980 INDICATION: Abdominal pain. COMPARISON: Comparison is made with a prior CT of the abdomen and pelvis from February 15, 2018. TECHNIQUE: Supine and upright views of the abdomen were obtained. FINDINGS: The small bowel and colon appear nondistended. No free intraperitoneal air is seen. There is a mild lumbar scoliosis convex toward the right side. There is mild to moderate bilateral osteoarthritic change. IMPRESSION: NO EVIDENCE FOR OBSTRUCTION. <Electronically signed by Emory Fan MD in [place]> 09/29/181740 Dictated By: Emory Fan MD Dictated Date/Time: 09/29/181740 Transcribed Date/Time: 09/29/181737 Copy to: Patient Name: JOSUE JEFFERY Medical Record#: [id number] Ordering Physician: Darryl Manning MD Acct.#: [id number] : 1995 Age: 23 Sex: F Location: [address] [place] [address] MEDICAL Exam Date: 09/29/181725 ADM Status: ADM IN Order Information: CHEST PA & LAT 2 VWS Accession Number: [id number] CPT: 82219 HISTORY: upper abdominal pain COMPARISONS: None VIEWS: 4: Frontal dual-energy and lateral views of the chest. FINDINGS: CARDIOMEDIASTINAL SILHOUETTE: The cardiac silhouette is mildly enlarged. JENNIFER: The jennifer are normal. PLEURA: The costophrenic angles are sharp. No pleural abnormalities are noted. LUNG PARENCHYMA: The lungs are clear. ABDOMEN: The upper abdomen is clear. There is no subphrenic gas. BONES AND SOFT TISSUES: No bone or soft tissue abnormalities are noted. OTHER: None. IMPRESSION: MILD CARDIOMEGALY. THE DIFFERENTIAL INCLUDES PERICARDIAL EFFUSION. R1F Preliminary Imaging Read R1F <Electronically signed by Sushil Donald MD in OV> 09/30/18728 Dictated By: Sushil Donald MD Dictated Date/Time: 09/30/18728 Transcribed Date/Time: 09/30/18727 Copy to: Assess/Plan/Problems-Billing Assessment: This is a 23 year old female with history of cyclic vomiting 2/2 marijuana use, admitted for intractable abdominal pain and vomiting with a waxing and waning course. - Patient Problems (1) Vomiting alone Current Visit: Yes Status: Acute Code(s): R11.11 - VOMITING WITHOUT NAUSEA SNOMED Code(s): 834451555370371 Comment: - Back to Clear liquid diet. - IV protonix ordered BID - GI consult appreciated, agree with assessment that this may be psychiatrically related, however, given persistent, severe symptoms, will order UGI series to assess size of hiatal hernia and a gastric emptying study to assess for gastroparesis given efficacy of reglan. - Likely exacerbated by Reflux, Continue sucralfate and PPI. - Surgical consult pending size of Hiatal Hernia on Imaging. - Given strong influence stress seemingly has on this, will get social work consult and continue lorazepam. (2) Abdominal pain Current Visit: No Status: Acute Code(s): R10.9 - UNSPECIFIED ABDOMINAL PAIN SNOMED Code(s): 40812909 Comment: - GI consult appreciated - Imaging unremarkable, - Not tolerating food, continue clear liquids - Vomiting recurrent overnight. Very responsive to reglan, continue PRN. - Transition to PO meds when able - Continue PPI, oral zofran and carafate - Recommend outpatient follow up with her local PCP and GI in [facility] ongoing. (3) Asthma Current Visit: No Status: Acute Code(s): J45.909 - UNSPECIFIED ASTHMA, UNCOMPLICATED SNOMED Code(s): 091441324 Comment: - No exacerbation noted (4) Hiatal hernia Current Visit: No Status: Acute Code(s): K44.9 - DIAPHRAGMATIC HERNIA WITHOUT OBSTRUCTION OR GANGRENE SNOMED Code(s): 11851516 Comment: - Continue PPI and carafate - Possible Repeat EGD in AM. (5) DVT prophylaxis Current Visit: No Status: Acute Code(s): YAK9079 - SNOMED Code(s): 669341951 Comment: - Encourage ambulation Status and Disposition: D/C when stable and able to tolerate PO.
[2018-10-02] MEDS: LORazepam INJ* 2 MG/ML 1 ML VIAL IV PUSH PRN (19:40)
[2018-10-03] MEDS: LORazepam INJ* 2 MG/ML 1 ML VIAL IV PUSH PRN ×4 (01:18→15:51)
[2018-10-03] MEDS: Capsaicin 0.025% CREAM* 60 GM TOPICAL SCH ×3 (01:20→20:22)
[2018-10-03] MEDS: Metoclopramide IV* 5 MG/ML 2 ML VIAL IV SLOW PU SCH ×6 (01:31→21:03)
[2018-10-03] MEDS: Ondansetron ODT TAB* 4 MG PO PRN ×2 (06:19→11:29)
[2018-10-03 07:05] LABS: Calcium 9.6 mg/dL (8.6-10.3); Potassium 3.3 mmol/L (3.5-5.0)
[2018-10-03 07:11] LABS: BUN/Creatinine Ratio 8.8 (8-20); EGFR Non-African American 68.4 (>60)
[2018-10-03] MEDS: Pantoprazole IV* 40 MG IV SCH ×4 (07:54→21:03)
[2018-10-03] MEDS: Sucralfate TAB* 1 GM PO SCH ×4 (10:07→20:22)
[2018-10-03] MEDS ORDERED: KCL 20 MEQ/100 ML IVPREMIX* 20 MEQ/100 ML BAG IV ONE (14:15)
[2018-10-03] MEDS ORDERED: Morphine VIAL* 4 MG/ML VIAL (1 ml vial) IV ONE (15:38)
--- NOTE | 2018-10-03 18:03 | PN ---
Subjective Date of Service: 10/03/18 Interval History: Patient was unable to complete gastric emptying study due to vomiting. When asked about this patient reports she was eating the oatmeal they provided with the imaging substance and it "had a funny taste" so she knew she was going to vomit. On assessment after returning from imaging patient was lying in bed sleeping. Patient woke easily and reported she felt ready for discharge as she was not experiencing pain, nausea, vomiting. Reports she would meet her mom at [facility] and the return to home. Reports she has a follow up appt with her GI in [place] on Tuesday. Later this afternoon the RN called stating patient was in pain. Upon assessment patient lying in bed, crying, and using heat packs on her lower abd. Denies nausea, but reports abd pain. PRN ordered. Family History: Unchanged from Admission Social History: Unchanged from Admission Past Medical History: Unchanged from Admission Objective Active Medications: Acetaminophen (Tylenol Tab*) 650 mg PO Q6H PRN PRN Reason: PAIN Albuterol (Ventolin 2.5 Mg/3 Ml Neb.Jessica*) 2.5 mg INH Q2H PRN PRN Reason: SOB/WHEEZING Capsaicin (Zostrix 0.025% Cream*) 1 applic TOPICAL BID [facility] Last Admin: 10/03/18 10:07 Dose: Not Given Lorazepam (Ativan Tab(*)) 0.5 mg PO Q6H PRN PRN Reason: ANXIETY Last Admin: 10/02/18 10:51 Dose: 0.5 mg Lorazepam (Ativan Inj*) 0.5 mg IV PUSH Q4H PRN PRN Reason: ANXIETY Last Admin: 10/03/18 15:51 Dose: 0.5 mg Metoclopramide HCl (Reglan Iv*) 5 mg IV SLOW PU Q6H [facility] Last Admin: 10/03/18 14:12 Dose: 5 mg Ondansetron HCl (Zofran Odt Tab*) 4 mg PO Q6H PRN PRN Reason: NAUSEA Last Admin: 10/03/18 11:29 Dose: 4 mg Pantoprazole Sodium (Protonix Iv*) 40 mg IV BID [facility] Last Admin: 10/03/18 07:54 Dose: 40 mg Pharmacy Profile Note (Scopolamine Patch Remove*) 1 note PATCH OFF Q72H [facility] Last Admin: 10/01/18 00:35 Dose: 1 patch Scopolamine (Transderm-Scop 1.5 Mg Patch*) 1 patch TRANSDERM Q72H [facility] Last Admin: 10/01/18 00:36 Dose: 1 patch Simethicone (Mylicon Tab*) 80 mg PO Q6H PRN PRN Reason: DYSPEPSIA Last Admin: 09/30/18 21:05 Dose: 80 mg Sucralfate (Carafate*) 1 gm PO QID [facility] Last Admin: 10/03/18 14:28 Dose: 1 gm Vital Signs - 8 hr 10/03/18 10/03/18 10/03/18 11:29 11:32 15:23 Temperature 98.0 F 98.4 F Pulse Rate 50 57 Respiratory 18 20 Rate Blood Pressure 135/72 153/88 (mmHg) O2 Sat by Pulse 100 100 Oximetry 10/03/18 10/03/18 15:49 15:51 Temperature Pulse Rate Respiratory 18 18 Rate Blood Pressure (mmHg) O2 Sat by Pulse Oximetry Oxygen Devices in Use Now: None Appearance: NAD Eyes: PERRLA Ears/Nose/Mouth/Throat: Clear Oropharnyx, Mucous Membranes Moist Neck: NL Appearance and Movements; NL JVP Respiratory: Symmetrical Chest Expansion and Respiratory Effort, Clear to Auscultation Cardiovascular: NL Sounds; No Murmurs; No JVD, RRR, No Edema Abdominal: NL Sounds; No Tenderness; No Distention Extremities: No Edema Skin: No Rash or Ulcers Neurological: Alert and Oriented x 3 Result Diagrams: 10/02/18 05:51 10/03/18 06:26 Additional Lab and Data: Laboratory Results - last 24 hr 10/03/18 06:26 Sodium 138 Potassium 3.3 L Chloride 103 Carbon Dioxide 24 Anion Gap 11 BUN 9 Creatinine 1.02 H Est GFR ( Amer) 82.8 Est GFR (Non-Af Amer) 68.4 BUN/Creatinine Ratio 8.8 Glucose 84 Calcium 9.6 Microbiology and Other Data: Diagnostic Imaging: Patient Name: JOSUE JEFFERY Medical Record#: [id number] Ordering Physician: Gay Bermudez NP Acct.#: [id number] : 1995 Age: 23 Sex: F Location: [address] [place] [address] - MEDICAL Exam Date: 09/29/181656 ADM Status: ADM IN Order Information: ABDOMEN (COMPLETE) 2 [facility] Accession Number: [id number] CPT: 83837 INDICATION: Abdominal pain. COMPARISON: Comparison is made with a prior CT of the abdomen and pelvis from February 15, 2018. TECHNIQUE: Supine and upright views of the abdomen were obtained. FINDINGS: The small bowel and colon appear nondistended. No free intraperitoneal air is seen. There is a mild lumbar scoliosis convex toward the right side. There is mild to moderate bilateral osteoarthritic change. IMPRESSION: NO EVIDENCE FOR OBSTRUCTION. <Electronically signed by Emory Fan MD in OV> 09/29/181740 Dictated By: Emory Fan MD Dictated Date/Time: 09/29/181740 Transcribed Date/Time: 09/29/181737 Copy to: Patient Name: JOSUE JEFFERY Medical Record#: [id number] Ordering Physician: Darryl Manning MD Acct.#: [id number] : 1995 Age: 23 Sex: F Location: [address] [place] [address] MEDICAL Exam Date: 09/29/181725 ADM Status: ADM IN Order Information: CHEST PA & LAT 2 [facility] Accession Number: [id number] CPT: 67137 HISTORY: upper abdominal pain COMPARISONS: None VIEWS: 4: Frontal dual-energy and lateral views of the chest. FINDINGS: CARDIOMEDIASTINAL SILHOUETTE: The cardiac silhouette is mildly enlarged. JENNIFER: The jennifer are normal. PLEURA: The costophrenic angles are sharp. No pleural abnormalities are noted. LUNG PARENCHYMA: The lungs are clear. ABDOMEN: The upper abdomen is clear. There is no subphrenic gas. BONES AND SOFT TISSUES: No bone or soft tissue abnormalities are noted. OTHER: None. IMPRESSION: MILD CARDIOMEGALY. THE DIFFERENTIAL INCLUDES PERICARDIAL EFFUSION. R1F Preliminary Imaging Read R1F <Electronically signed by Sushil Donald MD in [place]> 09/30/18728 Dictated By: Sushil Donald MD Dictated Date/Time: 09/30/18728 Transcribed Date/Time: 09/30/18727 Copy to: Assess/Plan/Problems-Billing Assessment: This is a 23 year old female with history of cyclic vomiting 2/2 marijuana use, admitted for intractable abdominal pain and vomiting with a waxing and waning course. - Patient Problems (1) Vomiting alone Comment: - Clear liquid diet. - IV protonix ordered BID - GI consult appreciated, agree with assessment that this may be psychiatrically related - Vomitted today and unable to completed gastric emptying study. Will attempt again tomorrow - Likely exacerbated by Reflux, Continue sucralfate and PPI. - Given strong influence stress seemingly has on this, will get social work consult and continue lorazepam. (2) Abdominal pain Comment: - GI consult appreciated - Right Upper Quad Ultrasound ordered for tomorrow. - In addition, transvaginal ultrasound ordered as pain in located in epigastric and lower abd - Continue clear liquids. NPO after midnight for imaging - Vomiting and abd pain recurrent - Continue PPI, oral zofran and carafate (3) DVT prophylaxis Comment: - Encourage ambulation Status and Disposition: D/C when stable and able to tolerate PO. Attending: Nell Webb
[2018-10-04] MEDS: Scopolamine PATCH Remove* 1 NOTE MISC PATCH OFF SCH (01:31)
[2018-10-04] MEDS: Scopolamine 1.5 mg* PATCH TRANSDERM SCH (01:31)
[2018-10-04] MEDS: Metoclopramide IV* 5 MG/ML 2 ML VIAL IV SLOW PU SCH ×3 (01:32→13:19)
[2018-10-04 07:34] LABS: BUN/Creatinine Ratio 12.4 (8-20); Calcium 9.4 mg/dL (8.6-10.3); EGFR Non-African American 80.1 (>60); Potassium 3.9 mmol/L (3.5-5.0)
[2018-10-04] MEDS: Capsaicin 0.025% CREAM* 60 GM TOPICAL SCH (10:44)
[2018-10-04] MEDS: Pantoprazole IV* 40 MG IV SCH (10:45)
[2018-10-04] MEDS: Sucralfate TAB* 1 GM PO SCH ×2 (10:46→13:19)
[2018-10-04] MEDS: Ondansetron ODT TAB* 4 MG PO PRN (15:41)
[2018-10-04 18:41] VITALS: BP 152/74
--- NOTE | 2018-10-05 02:11 | DS ---
DISCHARGE SUMMARY: DATE OF ADMISSION: 09/27/18. DATE OF DISCHARGE: 10/04/18. PRIMARY CARE PROVIDER: Unknown. ATTENDING PHYSICIAN: Dr. Webb * (dictated by Denys Du NP.) PRIMARY DIAGNOSES: 1. Nausea. 2. Vomiting. 3. Abdominal pain. SECONDARY DIAGNOSES: 1. Obesity. 2. Asthma. 3. Gastroesophageal reflux disease. 4. Hiatal hernia. CONSULTATIONS WHILE IN THE HOSPITAL: Dr. Darryl Manning, GI. PROCEDURES WHILE IN THE HOSPITAL: No procedures. STUDIES WHILE IN THE HOSPITAL: 1. Abdominal x-ray: Impression: No evidence of obstruction. 2. Chest x-ray: Impression: Mild cardiomegaly. 3. Abdominal/pelvis CT: Impression: Hepatomegaly with fatty infiltration of liver. 4. Upper GI series: Impression: Limited study. As noted above, no gross abnormalities seen. It should be noted that GI series was limited as the patient was nauseated throughout the study and could only drink a small amount of barium. 5. Gastric emptying nuclear medicine study: Impression: The patient vomited during the examination and examination was not completed. 6. Transvaginal ultrasound: Impression: There is a simple appearing cyst of the left ovary measuring a maximum of 1.7 cm. There is trace free fluid in the pelvis, could not exclude ovarian cyst rupture. 7. Abdominal ultrasound: Impression: Mildly enlarged liver. No evidence of cholelithiasis or biliary duct dilatation was noted. Limited evaluation of the pancreas. DISCHARGE MEDICATIONS: New home medications: Scopolamine 1.5 mg patch 1 patch transderm q.72 hours. Continued home medications: 1. Vitamin B12 at 500 mcg p.o. daily. 2. Ventolin 2 puffs inhalations q.4 hours p.r.n. 3. Mylicon 80 mg p.o. q.6 hours p.r.n. 4. Zofran 4 mg p.o. q.6 hours p.r.n. 5. Omeprazole 20 mg p.o. b.i.d. Discontinued home medications: No home medications discontinued. HISTORY OF PRESENT ILLNESS/HOSPITAL COURSE: Ms. Reno is a 23-year-old female with a past medical history of gastritis, hiatal hernia, vomiting due to marijuana use, morbid obesity, asthma; who presented to the emergency department on 09/27/18, with intractable nausea and vomiting. Please see history and physical dictated by Lit Zuluaga NP, for complete summary of events leading up to the hospitalization, but in short, the patient presented to the emergency room with intractable nausea and vomiting to which she had a similar episode back in February of this year and underwent pretty extensive workup with GI. She was then put on Carafate and Prilosec, and was advised to abstain from smoking marijuana. She came to the ED on 09/27/18 stating that she started to experience epigastric-type discomfort and had episodes of nausea and vomiting. In addition states, anything she ate she vomited. She admitted to eating a pot brownie and drinking at a constitution party a few days before presenting to the ED. She also reports she went to [employer] x2 before coming to [facility]. She reports she had CT imaging with no findings. Due to the fact that she continued to have nausea and vomiting in the emergency room despite aggressive management, the patient was admitted for further evaluation. During this hospital stay, the patient has been provided with supportive care including IV fluids, Compazine, Zofran, scopolamine, Carafate, capsaicin cream, lorazepam, and pain medications. As mentioned above, the patient underwent multiple imaging studies without a critical finding that would explain patient' s symptoms. The patient's diet has been slowly increased as she tolerates. It should be noted that diet had to be deescalated on multiple occasions due to reoccurrence of abdominal pain and vomiting. It should also be noted that the patient reports increased stress in her life including being kicked out of school. These things could be contributing to the patient's physical complaints. Ms. Reno is stable for discharge to home. Vital signs as follows: Temp 98.1, HR 54, RR 20, O2 saturation 100%, BP 152/72. REVIEW OF SYSTEMS: The patient reports intermittent abdominal pain. Denies chest pain, shortness of breath, palpitations, fever/chills, nausea, diarrhea, weakness or lightheadedness. PHYSICAL EXAM: General: Ms. Reno is a well-developed, well-nourished, obese -[place] woman, sitting in bed, in no acute distress. Appears stated age. HEENT: EOMs intact. Sclerae within normal limits. Oropharynx is moist. Tonsils without erythema or exudate. Neck: Full range of motion. Supple. Respiratory: Symmetrical chest expansion. No accessory muscle use. Lungs clear to auscultation. No rhonchi, rubs or wheezes. CV: Regular rate and rhythm. S1 and S2 present. No murmurs, rubs, or gallops. No JVD. Extremities: Skin is warm and smooth bilaterally. No edema. Pedal pulses 2+ bilaterally. Musculoskeletal: Full range of motion. No pain or deformities. The patient observed ambulating in the unit with steady gait. Abdomen: Soft, nontender to palpation. Bowel sounds x4. Neuro: Awake, alert, and oriented x4. Skin: Grossly intact without lesions. DISCHARGE PLAN/FOLLOWUP: 1. Nausea/vomiting: As mentioned above, there is no clear findings on imaging to explain patient's current symptoms. I suspect the patient's symptoms are multifactorial and could be due to a viral gastritis, emotional distress, marijuana use, and alcohol use. The patient is established with a GI specialist in [facility] and has an appointment on Tuesday10/06/18. The patient is encouraged to keep this appointment as she would benefit from further outpatient evaluation. In addition, I discussed with the patient at length emotional distress and its relation to physical symptoms. I have encouraged patient to seek outpatient therapy. In addition, I have discussed supportive care including p.r.n. medications as mentioned above and BRAT diet. 2. Abdominal pain: Initially, the patient was complaining of abdominal pain in the epigastric region which resolved. Later in patient's stay, she complained of pain in lower abdomen. The pain in the lower abdomen could be caused by ovarian cysts, which were found on transvaginal ultrasound. I discussed this finding with the patient at length. I have encouraged the patient to download a period tracker keyanna and monitor her symptoms in relation to her cycle. The patient does admit she is unsure if her cycle is regular. She just knows that it comes every month. In addition, the patient mentions that her period is often painful. I have encouraged the patient to follow up with her primary care provider regarding possible diagnosis of polycystic ovarian syndrome. In addition, the patient will be 23 years of age and would benefit from routine cervical cancer screening. The patient has agreed to follow up with primary care provider. 3. Hiatal hernia: This is not visualized on any imaging done on this hospital stay, but it should be noted that on 02/17/18, Dr. Marte did an endoscopy and found a large hiatal hernia. The patient should follow up with her GI in [facility] regarding further management. The patient should continue PPI as ordered. 4. Marijuana use: I have discussed with the patient the association of marijuana use with intractable vomiting. The patient stated understanding. 5. Morbid obesity. Discussed lifestyle changes and healthy eating. 6. Asthma: The patient should continue inhalers as needed and follow up with primary care provider. The patient was educated on signs and symptoms of new worsening conditions and when to return to the emergency department or local hospital emergency department. The patient stated understanding and agreed to discharge. This plan was reviewed with my attending, Dr. Webb, who agrees with my plan. This is a summarized report of a complex medical history and hospital stay. For further details, please see the entire medical record TIME SPENT: Approximately, 45 minutes was spent on this discharge, greater than half that time was spent [id number] with the patient discussing discharge plans and instructions. DENYS DU, MELISSA [id number]/[facility] #: [id number] CARLA
== END 2018-10-04 18:15 | disposition home or self-care (01) | DRG 249 ==
LOC: ED 21:21 → MED 23:31 → OBSVTOIN 09-29 15:30
PROVIDERS: ADMIT Internal Medicine; ATTEND Internal Medicine
DX: A08.4 Viral intestinal infection, unspecified (principal); Z68.42 Body mass index [BMI] 45.0-49.9, adult; F10.988 Alcohol use, unspecified with other alcohol-induced disorder; F12.988 Cannabis use, unspecified with other cannabis-induced disorder; E28.2 Polycystic ovarian syndrome; D57.3 Sickle-cell trait; J45.909 Unspecified asthma, uncomplicated; K44.9 Diaphragmatic hernia without obstruction or gangrene; T40.7X5A Adverse effect of cannabis (derivatives), initial encounter; F12.90 Cannabis use, unspecified, uncomplicated; E66.01 Morbid (severe) obesity due to excess calories; K21.9 Gastro-esophageal reflux disease without esophagitis; I51.7 Cardiomegaly; R16.0 Hepatomegaly, not elsewhere classified; K57.90 Diverticulosis of intestine, part unspecified, without perforation or abscess without bleeding; Z82.49 Family history of ischemic heart disease and other diseases of the circulatory system; Z72.89 Other problems related to lifestyle; Y92.9 Unspecified place or not applicable; Z83.3 Family history of diabetes mellitus; Z73.3 Stress, not elsewhere classified; Y90.9 Presence of alcohol in blood, level not specified
CPT/HCPCS: 36415; 71046; 74019; 74177; 74246; 76705; 76830; 78264; 80048; 80053; 80307; 81003; 81015; 82150; 83036; 83605; 83615; 83690; 83735; 84702; 85025; 85610; 86140; 87086; 99285; A9270-GY; A9541; G0378; J0780; J1170; J1885; J2060; J2270; J2405; J2765; J3475; J3480; Q0164; Q9967